=== PATIENT | female | born 1945 | race Caucasian/White ===

== ENCOUNTER 2018-07-11 11:52 | Day surgery (SDC) | payer MEDICARE ==
[2018-07-10 10:33] VITALS: BMI 36.6
--- NOTE | 2018-07-11 14:59 | MRI ---
MRI LUMBAR SPINE NONCONTRAST: HISTORY: Low back pain with radiculopathy. FINDINGS: The conus medullaris has a normal appearance. 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 T12-L1: Mild chronic compression of the L1 superior end plate with approximately 0.3 cm retropulsion . No significant compromise of the central canal. Neural foramina are patent. L1-2: Mild disk bulge. Osteophytosis. Central canal is patent. Mild stenosis of the right neural foramen. L2-3: Minimal disk bulge. Osteophytosis. Central canal is patent. Mild bilateral foraminal stenos es. L3-4: Central canal is patent. Degenerative changes result in moderate right and mild left foramina l stenoses. L4-5: Minimal disk bulge. Thecal sac is patent. Degenerative changes with moderate stenosis of the left neural foramen. L5-S1: Disk space narrowing. Minimal disk bulge with mild posterior central disk protrusion. Theca l sac is patent. Degenerative changes with moderate stenosis of each neural foramen. Images including the retroperitoneum show atrophy of the cortex of each kidney and a left renal cyst. IMPRESSION: Degenerative changes of the lumbar spine including mild to moderate foraminal stenoses as detailed ab ove. No focal disk herniation or nerve root compression. POS: [facility]
== END 2018-07-11 15:00 | disposition home or self-care (01) ==
LOC: SDC/OP 11:52
PROVIDERS: ATTEND Physician Assistant Surgical
DX: M51.16 Intervertebral disc disorders with radiculopathy, lumbar region (principal); M48.062 Spinal stenosis, lumbar region with neurogenic claudication; F40.240 Claustrophobia; I48.91 Unspecified atrial fibrillation; Z79.02 Long term (current) use of antithrombotics/antiplatelets; Z79.4 Long term (current) use of insulin; Z79.899 Other long term (current) drug therapy; Z88.0 Allergy status to penicillin; Z88.8 Allergy status to other drugs, medicaments and biological substances; Z95.5 Presence of coronary angioplasty implant and graft
CPT/HCPCS: 36416; 72148

== ENCOUNTER 2018-08-27 19:23 | Inpatient (IN) | payer MEDICARE ==
[~2018-08-27 19:23] MED LIST: Heparin 1,000 UNITS/ML VIAL ONE
[2018-08-27] MEDS ORDERED: cefTRIAXone\\ROCEPHIN 2 GM VIAL ONE (19:39)
[2018-08-27 20:38] LABS: CKMB 2.5 ng/mL (0-6.6)
[2018-08-27] MEDS ORDERED: Adenosine 6 MG/2 ML VIAL ONE (20:45)
[2018-08-27] MEDS ORDERED: Azithromycin 500 MG in Sodium Chloride 0.9% 250 ML 250 ML IVPB SCH (20:45)
[2018-08-27] MEDS ORDERED: Diltiazem 125 MG/25 ML ONE (21:14)
[2018-08-27] MEDS ORDERED: Diltiazem HCl 125 MG, Admixture Fee 1 EACH in Sodium Chloride 0.9% 100 ML IVPB SCH (21:30)
[2018-08-27] MEDS ORDERED: Acetaminophen 500 MG TAB ONE (21:38)
[2018-08-27] MEDS ORDERED: Acetaminophen 650 MG Suppository PR PRN (21:44)
[2018-08-27] MEDS ORDERED: Heparin 25,000 units/D5W 500 ML IVPB SCH (22:15)
[2018-08-27] MEDS ORDERED: Heparin 10,000 UNITS/ 10 ML VIAL SLOW IVP SCH (22:15)
[2018-08-27 23:22] LABS: Anion Gap 14 mmol/L (10-20); BUN (Urea Nitrogen) 51 mg/dL (9.8-20.1); BUN/Creatinine Ratio 33.12; Calc. Creatinine Clearance 0 mL/min (70-130); Calcium 6.8 mg/dL (7.8-10.44); Carbon Dioxide 16 mmol/L (23-31); Chloride 111 mmol/L (98-107); Estimated GFR-MDRD 33; Glucose 184 mg/dL (83-110); Phosphorus 2.8 mg/dL (2.3-4.7); Potassium 4.4 mmol/L (3.5-5.1); Sodium 137 mmol/L (136-145)
[2018-08-27] MEDS: Sodium Chloride 0.9% 1,000 ML IV SCH ×2 (23:30→23:42)
[2018-08-27 23:46] VITALS: BMI 35.9
[2018-08-27] MEDS ORDERED: guaiFENesin 200 MG TAB PO PRN (23:50)
[2018-08-27] MEDS ORDERED: Sodium Chloride 0.9% 1,000 ML IV SCH (23:59)
[2018-08-28] MEDS: Vancomycin HCl 1.75 GM in Sodium Chloride 0.9% 500 ML IVPB SCH ×2 (00:21→23:41)
[2018-08-28 00:48] LABS: Bilirubin Negative (Negative); Blood, Urine Negative (Negative); Clarity CLOUDY (Clear); Glucose, Urine (Dipstick) Negative (Negative); Leukocyte Trace (Negative); Nitrite Negative (Negative); Protein, Urine (Dipstick) 30 mg/dL (Neg-Trace); Specific Gravity, Urine 1.015 (1.002-1.036); Urobilinogen 0.2 mg/dL (0.2-1.0)
[2018-08-28 00:54] LABS: Legionella Urinary Ag Negative (Negative); Strep pneumo Urine Ag POSITIVE (NEGATIVE)
[2018-08-28] MEDS ORDERED: Guaifenesin DM 100-10/5 ML UDCUP PO PRN (02:07)
[2018-08-28] MEDS ORDERED: Aztreonam 1 GM in Sodium Chloride 0.9% 100 ML IVPB SCH (04:00)
[2018-08-28 06:40] LABS: Mean Corpuscular HGB CONC 32.3 g/dL (32.0-36.0); Mean Corpuscular Hemoglobin 31.8 pg (27.0-31.0); Mean Corpuscular Volume 98.3 fL (78.0-98.0); Mean Platelet Volume 7.8 fL (7.4-10.4); Platelet Count 203 thou/uL (130-400); RBC Distribution Width 11.7 % (11.5-14.5); Red Blood Cell (RBC) Count 3.14 mill/uL (4.20-5.40); White Blood Cell (WBC) Count 16.2 thou/uL (4.8-10.8)
[2018-08-28 06:51] LABS: ALT (SGPT) 17 U/L (8-55); AST (SGOT) 28 U/L (5-34); Albumin 2.1 g/dL (3.4-4.8); Alkaline Phosphatase 56 U/L (40-150); Anion Gap 15 mmol/L (10-20); BUN (Urea Nitrogen) 53 mg/dL (9.8-20.1); Bilirubin, Total 0.9 mg/dL (0.2-1.2); Calc. Creatinine Clearance 46 mL/min (70-130); Calcium 7.1 mg/dL (7.8-10.44); Carbon Dioxide 17 mmol/L (23-31); Chloride 111 mmol/L (98-107); Estimated GFR-MDRD 30; Globulin 2.9 g/dL (2.4-3.5); Glucose 189 mg/dL (83-110); Potassium 4.5 mmol/L (3.5-5.1); Sodium 138 mmol/L (136-145)
[2018-08-28] MEDS: Metoprolol Tartrate 25 MG TAB PO SCH ×2 (08:13→20:12)
[2018-08-28] MEDS: Acetaminophen 325 MG TAB PO PRN ×3 (08:30→20:47)
--- NOTE | 2018-08-28 08:53 | HP ---
CHIEF COMPLAINT: Cough. HISTORY OF PRESENT ILLNESS: This is a 73-year-old female with past medical history of coronary artery disease status post stents, history of diabetes mellitus type 2, hernia, hyperlipidemia, and hypertension, who is presenting with productive cough. Per patient, she has been having some cough, which started since Saturday prior to the day of admission and the patient states that the cough has worsened and that prompted her to go to [facility]. At the [facility] , the patient was found to have pneumonia and sepsis. Therefore, the patient was transferred to our hospital to be further evaluated. At this point, upon further evaluation and examination, the patient was found to have atrial fibrillation with RVR, so the patient was started on Cardizem drip en route to the hospital. The patient was also given Levaquin for pneumonia and subjective fevers. At this point, the patient stated that she is having productive cough, she is very dry, and she was having some chills and subjective fevers. The patient denies any sick contacts and the patient has not traveled recently. The patient stated that she lives at home with her . Of note, the patient was recently seen in the hospital for gastrointestinal bleed. The patient stated that she was having bloody bowel movements a couple of months ago and she was on Xarelto and Plavix during that time, and the patient's Xarelto was held at the time. At this point, the patient stated that she has not had any bloody bowel movement and also stool occult that was done in the [facility] has been negative. REVIEW OF SYSTEMS: Positive for shortness of breath, productive cough, fever, chills, otherwise as documented in the HPI. All other systems were reviewed and are negative. PAST MEDICAL HISTORY: Significant for coronary artery disease, status post stents x1, diabetes mellitus type 2, hiatal hernia, hyperlipidemia, and hypertension. FAMILY HISTORY: Reviewed and noncontributory to this visit. SURGICAL HISTORY: Eyelid left bilateral cataract surgery, hysterectomy, stents x2, and colorectal ablation. PSYCHIATRIC HISTORY: No previous psych history. SOCIAL HISTORY: The patient denies alcohol use. Denies any illicit drug use. Denies any smoking history. ALLERGIES: THE PATIENT IS ALLERGIC TO LISINOPRIL AND PENICILLIN. CURRENT MEDICATIONS: The patient is on; 1. Biotin. 2. Black cohosh root. 3. Clopidogrel 75 mg. 4. Vitamin B12 of 1000. 5. Losartan 25 mg. 6. Metoprolol 25 mg. 7. Pantoprazole 40 mg. 8. Senna. 9. Atorvastatin 20 mg. 10. Vitamin D3 5000 units daily. 11. Detemir. PHYSICAL EXAMINATION: VITAL SIGNS: The patient's initial vitals; blood pressure was 153/90, pulse of 145, respiratory rate of 28, temperature of 100.4, O2 saturation of 95. GENERAL: The patient is lying in bed, coughing. The patient appears to be in mild distress, able to speak in full sentences. However, alert and oriented x3. HEENT: Normocephalic and atraumatic. Pupils are equally round and reactive to light. Extraocular movements are intact. No scleral icterus. No conjunctival pallor. NECK: No JVD. Trachea is midline. No cervical adenopathies. No tenderness. No meningeal signs. Mucous membranes are very dry. LUNGS: The patient has bilateral crackles at the lower lobes bilaterally and at the left anterior lobe. CARDIAC: The patient has tachycardia. ABDOMEN: Soft, nontender, and nondistended. Obese. No pulsatile masses. No peritoneal signs. No rigidity. No guarding. EXTREMITIES: The patient has 5/5 upper extremity strength and 5/5 lower extremity strength. No edema noted at the upper and lower extremities. NEUROLOGIC: Cranial nerves 2 through 12 grossly intact. No neurologic deficits noted. SKIN: Warm, dry, and intact. PSYCH: Normal affect. Alert and oriented x3. DIAGNOSTIC DATA: EKG that was done shows questionable sinus tachycardia/ possible SVT with a rate of 144. LABORATORY DATA: WBC 16.2, hemoglobin of 10, hematocrit of 30.9, and platelet count is 203. Sodium is 138, potassium of 4.4, chloride of 111, carbon dioxide of 16, anion gap of 14, BUN is 51, creatinine is 1.54, GFR of 33, and glucose of 184. Lactic acid is 2.0 and 1.6, phosphorus is 2.8. Troponin is 0.048. Urinalysis; trace leuk esterase. Serology shows positive strep pneumoniae. Chest x-ray shows left-sided consolidation. ASSESSMENT AND PLAN: This is a 73-year-old female, being admitted for: 1. Community-acquired pneumonia. At this point, she appears to have possibl supraventricular tachycardia running at 150s to 160s. We will start the patient on antibiotics. We will start the patient on fluids. We will continue the patient on current management. We will try and slow the patient's heart rate down by using Valsalva technique and if the patient's heart rate does not slow down, we will give the patient adenosine to see underlying rhythm. If the patient's heart rate does not slow down and the patient appears to be in atrial fibrillation, then we will start the patient back on Cardizem to control the patient's rate and the patient is going to be admitted to the [facility]. We will give p.r.n. acetaminophen for pain and fever. We will monitor the patient very closely. We will send out cultures and we will follow up on cultures and tailor antibiotics based on culture results. 2. Tachycardia likely supraventricular tachycardia/underlying atrial fibrillation with rapid ventricular response. At this point, the patient has been given adenosine. The patient appears to be in atrial fibrillation with rapid ventricular response. We have started the patient on Cardizem drip. We are going to admit the patient to the [facility]. We will continue to monitor the patient closely. We will continue IV fluid. 3. History of atrial fibrillation. The patient is not on any anticoagulation at this time. We will start the patient on heparin drip and we have consulted Cardiology. We will follow up with Cardiology's recommendations. We will hold Plavix. 4. Hypertension. At this point, the patient is normotensive. We will monitor the patient's blood pressure closely. The patient is currently in supraventricular tachycardia/atrial fibrillation with rapid ventricular response. The patient is going in and out. At this point, we will monitor the patient's blood pressure closely since the patient can become hypotensive at any time granted that the patient is also on Cardizem drip. 5. Coronary artery disease, status post stents. At this point, we will continue the patient on her current medications. We will hold Plavix. 6. Urinary tract infection. At this point, we will continue the patient on antibiotics and we will continue to monitor the patient. 7. History of gastrointestinal bleed. At this point, the patient does not have any bleed and the patient's occult blood has been negative. We will start the patient on heparin and we will monitor the patient closely. 8.. Diabetes mellitus type 2. We will continue the patient on insulin sliding scale and we will monitor the patient's blood glucose. Critical care time > 70 mins Job ID: [id number] MTDD
[2018-08-28] MEDS ORDERED: Famotidine 20 MG TAB PO SCH (09:00)
[2018-08-28] MEDS: Famotidine/PF 20 mg/2ml Vial SLOW IVP SCH ×2 (09:00→20:21)
[2018-08-28 09:36] LABS: Band 16 % (5-11); Burr Cells SLIGHT = 2-5 cells (100X) (0-1/hpf); Lymphocytes 4 % (21-51); MDiff Complete? YES; Monocytes 5 % (0-10); Neutrophil 75 % (42-75); PLT Morphology Comment Appears Adequate; Polychromasia SLIGHT = 2-3 cells (100X) (0-2/hpf)
--- NOTE | 2018-08-28 10:08 | PDOC.PN ---
- Subjective Encounter Start Date: 08/28/18 (f/u pneumonia) Encounter Start Time: 10:05 Subjective: Pt c/o feeling tired and coughing. Reports bruising on abd wall has been -: present since she is coughing. is having diarrhea - Objective Resuscitation Status - Order Detail: 08/27/18 21:44 Resuscitation Status Routine Resuscitation Status: FULL: Full Resuscitation Vital Signs & Weight: Vital Signs (12 hours) Temp Pulse Resp BP Pulse Ox 08/28/18 07:21 143 H 22 H 118/73 100 08/28/18 04:00 97.9 F 117 H 19 128/47 L 100 08/27/18 23:45 98.3 F 134 H 15 104/54 L 100 08/27/18 23:35 100 Weight Weight 216 lb 0.848 oz I&O: 08/27/18 08/28/18 08/29/18 06:59 06:59 06:59 Intake Total 2450 Output Total 200 100 Balance 2250 -100 Result Diagrams: 08/28/18 06:12 08/28/18 06:12 EKG Reviewed by me: Yes (tele - a fib 110-130s) Phys Exam - Physical Examination Constitutional: NAD Respiratory: no wheezing few scattered rhonchi, decreased breath sounds at right base Cardiovascular: no significant murmur, irregular Gastrointestinal: soft, positive bowel sounds ttp along the area of ecchymosis of abd wall, abd soft No pitting edema Neurological: non-focal, moves all 4 limbs Deviation from normal: blunted affect, appears tired Deviation from normal: large areas of ecchymosis on each arm and abd wall. Dx/Plan (1) Atrial fibrillation with RVR Code(s): I48.91 - UNSPECIFIED ATRIAL FIBRILLATION Status: Chronic (2) Streptococcal pneumonia Code(s): J15.4 - PNEUMONIA DUE TO OTHER STREPTOCOCCI Status: Acute (3) Diabetes mellitus Code(s): E11.9 - TYPE 2 DIABETES MELLITUS WITHOUT COMPLICATIONS Status: Chronic Qualifiers: Diabetes mellitus type: type 2 Diabetes mellitus penitentiary insulin use: with rat exterminator use (4) CAD (coronary artery disease) Code(s): I25.10 - ATHSCL HEART DISEASE OF [place] CORONARY ARTERY W/O ANG PCTRS Status: Chronic Qualifiers: Coronary Disease-Associated Artery/Lesion type: [place] artery [place] vs. transplanted heart: [place] heart (5) HTN (hypertension) Code(s): I10 - ESSENTIAL (PRIMARY) HYPERTENSION Status: Chronic Qualifiers: Hypertension type: essential hypertension Qualified Code(s): I10 - Essential (primary) hypertension (6) Obesity Code(s): E66.9 - OBESITY, UNSPECIFIED Status: Chronic Qualifiers: Obesity type: unspecified obesity type - Plan * 2 main issues are: * Pneumonia - by [facility] report in left mid-lung with positive urine strep pneumonia. Pt is on aztreonam and Vancomycin - will hold on changing these pending Pulm consult * A Fib with RVR - increased diltiazem to 10 mg/hr for better rate control. Cards consult. Pt is on heparin gtt for now * DM - continue long acting insulin as ordered - adjust per intake, add mild scale for mealtime * Diarrhea - check stool studies * CKD stage 3 - consult to Dr. Valerio and renal imaging ordered * PT and OT consults as pt at high risk of deconditioning further while here. * * dvt prophy - full dose heparin * gi prophy - taking PO * code status full * * reviewed current diagnosis and treatment with patient, no questions or further needs at end of eval * pt remains at high risk in current condition.
[2018-08-28] MEDS ORDERED: HumaLOG 300 UNITS/3 ML VIAL SC PRN (10:14)
[2018-08-28] MEDS ORDERED: Dextrose 5% in Water 1,000 ML IV PRN (10:14)
[2018-08-28] MEDS ORDERED: Dextrose 50% Abboject 50 ML SYRINGE SLOW IVP PRN (10:14)
--- NOTE | 2018-08-28 11:33 | CON ---
DATE OF CONSULTATION: HISTORY OF PRESENT ILLNESS: Jeanette Chamorro is a 73-year-old obese female from [place], [place], who sees Dr. Shepherd, who presented to the ER yesterday with symptoms of cough, congestion since yesterday. . She has never smoked. No prior history of TB, pneumonia, or bronchial asthma. She has known history of atrial fibrillation, status post ablation and apparently started on Cardizem and Levaquin. Most of the day she is relatively active without getting markedly short of breath. PAST MEDICAL HISTORY: Coronary artery disease, status post stent; history of diabetes; reflux. PREVIOUS SURGERIES: Included cataract surgery, hysterectomy, cardiac stents, some kind of colorectal ablation. HOME MEDICATIONS: Includes; 1. Plavix 37.5. 2. Lopressor one tablet twice a day. 3. Protonix 40. 4. Losartan . ALLERGIES: LISINOPRIL AND PENICILLIN. REVIEW OF SYSTEMS: Otherwise, 10-point negative. PHYSICAL EXAMINATION: VITAL SIGNS: blood pressure is 118/73, temperature 97, respiratory saturations 100%. CHEST: Bilateral rhonchi and wheezing. CARDIAC: Normal S1 and S2. No gallops. ABDOMEN: No masses. LABORATORY DATA: White count 16,000, H and H 10 and 30, platelet count 203. Creatinine is 1.67, BUN is 53. Otherwise, lytes are normal. Influenza is negative. Apparently, chest x-ray from [place] was normal. We unable to access the information. IMPRESSION: 1. Bronchitis. 2. Atrial fibrillation. 3. Diabetes. 4. Hypertension. 5. Coronary artery disease. Medicine being adjusted. I am going to get a baseline chest x-ray. Nebs and anti-inflammatory medication have been initiated. We will follow. Consultation note, 70 minutes, of which 50% in direct patient care. Job ID: [id number]
--- NOTE | 2018-08-28 12:11 | ULT ---
STANDARD BILATERAL RENAL ULTRASOUND: HISTORY: Acute kidney injury. COMPARISON: Ultrasound from 10/01/2015. FINDINGS: The right kidney measures 10 x 5.2 x 5.3 cm and the left kidney measures 10.3 x 5.9 x 5.4 cm. Pre-vo id urinary bladder volume is 60 mL. No renal mass, hydronephrosis, or abnormal calcifications. IMPRESSION: No evidence of obstructive uropathy. POS: [facility]
--- NOTE | 2018-08-28 12:11 | RAD ---
CHEST 1 VIEW: Date: 08/28/18 HISTORY: Cough. COMPARISON: Radiograph dated 07/18/16. FINDINGS: There is a left upper lobe consolidation/mass. There is also right basilar consolidation/mass. The fi ndings are slightly improved compared to the 08/27/18 exam. IMPRESSION: Left upper lobe and right lower lobe air space opacities versus mass. Continued follow-up recommended . POS: [facility]
--- NOTE | 2018-08-28 13:20 | CON ---
DATE OF CONSULTATION: NEPHROLOGY CONSULT REASON FOR CONSULTATION: Elevated creatinine. HISTORY OF PRESENT ILLNESS: This is a very pleasant 73-year-old female, who was taking NSAID, presented to the hospital with cough, was noted to have a creatinine of 1.5 to 1.6 today, prior baseline was around 1.4 to 1.0 two years ago. She had few episodes of acute kidney injury. The patient denies any chest pain, but was found to have atrial fibrillation with rapid ventricular response. PAST MEDICAL HISTORY: Significant for coronary artery disease, stents, diabetes mellitus, hiatal hernia, and hypertension. FAMILY HISTORY: Negative for ESRD. PAST SURGICAL HISTORY: Significant for cataract, hysterectomy, stents, and colorectal ablation. SOCIAL HISTORY: No tobacco, alcohol, or drug use. MEDICATIONS: Home medication list reviewed. ALLERGIES: REVIEWED. PHYSICAL EXAMINATION: CONSTITUTIONAL: The patient is awake, alert. VITAL SIGNS: Afebrile, pulse 100, breathing 16, and blood pressure 153/90. GENERAL APPEARANCE AND MENTAL STATUS: Fair. HEAD/NECK: Normocephalic. Atraumatic. EYES: EOMI. No deformity. EARS: Clear. No ulcers. NOSE: Intact. No lesions. MOUTH: Clear. No discharge. THROAT: Clear. No exudate. LUNGS: Clear. No crackles. CARDIAC: S1, S2. No rub. ABDOMEN: Benign. Bowel sounds positive. GENITALIA/RECTUM: Iniguez absent. BACK/EXTREMITIES: Edema 0+. NEUROLOGICAL: Alert and motor intact. SKIN: LYMPHATICS: LABORATORY DATA: Labs show creatinine 1.6. Urine shows protein present. Hemoglobin is 10. IMPRESSION AND PLAN: 1. Acute kidney injury with chronic kidney disease due to cardiorenal syndrome and NSAID use, avoid that. Order imaging. 2. Hypertension, stable. 3. Anemia, stable. 4. Medications based on GFR, appropriate. No indication for dialysis. Job ID: [id number]
--- NOTE | 2018-08-28 14:32 | CON ---
DATE OF CONSULTATION: 08/28/2018 REASON FOR CONSULTATION: Atrial fibrillation with RVR. HISTORY OF PRESENT ILLNESS: Ms. Chamorro is a very pleasant 73-year-old white female, very well known to myself, who comes to the hospital for symptoms consistent with bronchitis or pneumonia. She was admitted and placed on antibiotics. She eventually developed atrial fibrillation with RVR. Heart rate in the 140s. She was started on diltiazem drip and heart rate is now rate controlled. She is feeling better from tachycardia standpoint, but is still struggling with a lot of cough to the point where she is chronically on Plavix for CAD and she ruptured spontaneously subcutaneous vessel on her belly and has a large area of ecchymosis from all the coughing. She denies any chest pain, tightness, pressure other than coughing and congestion. PAST MEDICAL HISTORY: 1. Atrial fibrillation. 2. Atrial flutter. 3. Coronary artery disease. 4. Type 2 diabetes. 5. Hiatal hernia. 6. Hyperlipidemia. 7. Hypertension. 8. History of upper GI bleed from erosive esophagitis and peptic ulcer disease. PAST SURGICAL HISTORY: 1. Bilateral eyelid surgery. 2. Cataract surgery. 3. Hysterectomy. 4. Heart catheterization with stents in the LAD in 2016. 5. Ablation of both atrial fibrillation and atrial flutter in 2016. 6. EGD, colonoscopy. OUTPATIENT MEDICATIONS: Include; 1. Biotin. 2. Black cohosh. 3. Plavix 75 mg. 4. Vitamin B12. 5. Losartan 25 mg. 6. Metoprolol 25 mg b.i.d. 7. Pantoprazole 40 mg. 8. Senna. 9. Atorvastatin 20 mg. 10. Vitamin D3. 11. Detemir. ALLERGIES: LISINOPRIL AND PENICILLIN. SOCIAL HISTORY: No alcohol, tobacco, or drug use. FAMILY HISTORY: Noncontributory. REVIEW OF SYSTEMS: 12-point review of systems was done and was found to be negative unless stated in the history of present illness. PHYSICAL EXAMINATION: VITAL SIGNS: Temperature 97.9, pulse anywhere from 140s down to the 80s now, blood pressure 100/76, saturating 99% on 2 L. GENERAL: Awake, alert, oriented x3. No distress. HEENT: Normocephalic. LUNGS: Mild coarseness bilaterally. CARDIOVASCULAR: S1, S2. No S3, S4. No murmurs. ABDOMEN: Soft. Positive bowel sounds. EXTREMITIES: Trace edema. SKIN: Warm and dry. LABORATORY WORK: Reviewed. CBC with white count of 16, hemoglobin of 10, hematocrit 30, platelet count 203. Chemistries reviewed. Creatinine went from 1.5 to 1.6, normal sodium and potassium, glucose in the 180s, calcium at 7.1. Troponin 0.048, only one has been drawn. Albumin of 2.1. UA was reviewed. Strep pneumoniae antigen is positive. Legionella antigen in the urine is negative. Flu is negative for both A and B. Telemetry was reviewed, atrial fibrillation, RVR, now rate controlled. ASSESSMENT: 1. Acute bronchitis/pneumonia. 2. Atrial fibrillation, rapid ventricular rate. 3. Coronary artery disease, stable. PLAN: 1. Continue rate control with diltiazem at current dose. She will need full anticoagulation with subcu Lovenox for now for stroke prophylaxis and she did have a history of upper GI bleed from ulcerative disease and erosive esophagitis. Will have to be on a b.i.d. PPI and she may be a candidate for Lariat or Watchman device in the future. 2. We will call Electrophysiology as well as she has failed her atrial fibrillation ablation which was two years ago, she may need repeat ablation with Watchman device placement. 3. Antibiotics per primary team. 4. We will follow. Job ID: [id number]
[2018-08-28] MEDS: Diltiazem 125 MG in Sodium Chloride 0.9% 100 ML IVPB SCH (15:00)
--- NOTE | 2018-08-28 16:54 | ULT ---
LIMITED ABDOMINAL ULTRASOUND: 08/28/18 CLINICAL HISTORY: Evaluation of rectus sheath hematoma. Internal bleeding. Pain. FINDINGS: Localized sonographic imaging of the area of interest within the abdomen performed which does include the four abdominal quadrants. There is no free abdominal fluid seen. Within the imaged body wall the re is no obvious focal fluid collection. IMPRESSION: No localizable focal fluid collection is seen. If there is persistent concern for rectus sheath hemat verito, consider CT exam to further evaluate. POS: [facility]
[2018-08-28] MEDS: Mometasone/Formoterol 120 PUFF INHALER INH SCH (18:28)
[2018-08-28] MEDS: Atorvastatin Calcium 20 MG TAB PO SCH (20:15)
[2018-08-28] MEDS: Doxycycline 100 MG CAP PO SCH (20:19)
[2018-08-28] MEDS: Enoxaparin Sodium 100 MG/ML SYRINGE SC SCH (20:20)
[2018-08-28] MEDS: Cefepime 1 GM in Sodium Chloride 0.9% 100 ML IVPB SCH (20:20)
[2018-08-28] MEDS ORDERED: Insulin Glargine 20 UNITS in Pre-Filled Syringe 1 EACH SC SCH (21:00)
[2018-08-28] MEDS ORDERED: Non-Formulary Item 1 EACH (Insulin Detemir 100 Units/Ml [Levemir] 20 UNITS) SC SCH (21:00)
--- NOTE | 2018-08-28 21:09 | CON ---
DATE OF CONSULTATION: 08/28/2018 REFERRING PHYSICIAN: Kody Ivey MD. REASON FOR CONSULTATION: Bleeding with anticoagulation, atrial fibrillation, atrial flutter, and RVR. HISTORY OF PRESENT ILLNESS: Ms. Chamorro is a 73-year-old woman, known to our practice for history of typical atrial flutter as well as atrial fibrillation. She underwent CTI ablation with Dr. Sahni in February of 2016 and shortly thereafter was found to be in atrial fibrillation. She was on Multaq for suppression, but unfortunately her atrial arrhythmias persisted and she underwent PVAI with Dr. Thrasher in May of 2016. Two months later, she had coffee-ground emesis and was found to have multiple ulcers on EGD, though none were actively bleeding. She was on Plavix and Xarelto at that time. She had an CO and stenting of the LAD in February of 2016 as well. Her Xarelto was discontinued. The patient was last seen in our office for followup in June of 2016. She has not returned for appointment since that time. Ms. Chamorro was having coughing at home that had started Saturday prior to admission, which had worsened and become severe enough that prompted her to go to the [facility] in [place]. She was found there to be septic with pneumonia and was transferred to [facility] in [place] for further evaluation. At that time, she was found to be in atrial fibrillation with RVR, and she was started on a Cardizem drip. There was consideration that her tachycardia was an SVT and she was given 6 mg of adenosine which confirmed underlying atrial fibrillation and not SVT. She has also been started on antibiotics for her community-acquired pneumonia. She also endorses that on Saturday she began to have bloody bowel movements as well as coffee-ground emesis once again even without any anticoagulation on board. Since being in the hospital, she is currently on diltiazem 10 mg/hour for rate control, which is keeping her atrial fibrillation between 70 and 80 beats per minute. She was started on Lovenox 100 mg subcutaneous b.i.d. for anticoagulation, but is also currently being evaluated for an acute kidney injury with an elevated creatinine of 1.67. REVIEW OF SYSTEMS: Positive for shortness of breath, cough, fever, chills, abdominal pain, extensive bruising, swelling of the extremities. Otherwise, a 12-point review of systems was conducted and is unremarkable and as per HPI. PAST MEDICAL HISTORY: 1. Atrial fibrillation, status post PVAI in April of 2016, previously refractory to Multaq. 2. CTI dependent atrial flutter, status post CTI ablation in February of 2016. 3. Non ST-elevation CO, requiring stenting of the LAD in February of 2016. 4. Diabetes. 5. Hypertension. 6. Rheumatic pericarditis in 1969. 7. Gastroesophageal reflux disease. 8. Obesity. 9. Hiatal hernia. 10. Hyperlipidemia. 11. CHADS-VASc score of 5 (advancing age, female gender, diabetes, hypertension, vascular disease). 12. History of esophageal bleeding. FAMILY HISTORY: Noncontributory. SOCIAL HISTORY: Lives at home with her . Denies alcohol, tobacco, or illicit drug use. ALLERGIES: LISINOPRIL AND PENICILLIN. HOME MEDICATIONS: Include: 1. Plavix 37.5 mg p.o. b.i.d. 2. Lopressor, dose unknown, one tab p.o. daily. 3. Senna one tab p.o. q.h.s. 4. Protonix 40 mg daily. 5. Losartan potassium half a tab p.o. daily. 6. Levemir 20 to 25 units subcu q.h.s. 7. B12 1000 mcg p.o. daily. 8. Vitamin D3 2000 units p.o. daily. 9. Black cohosh root supplement 20 mg p.o. daily. 10. Biotin 5000 mcg p.o. daily. 11. Atorvastatin 10 mg p.o. q.h.s. PHYSICAL EXAMINATION: VITAL SIGNS: Most recent vital signs; pulse 74, respirations 22, oxygen is 94% on room air, blood pressure 108/82. GENERAL: The patient is resting in bed, lying semi recumbent, in mild distress, mostly with coughing episodes. She is able to speak in full sentences without dyspnea and less coughing. Alert and oriented to person, place, and situation. HEENT: Normocephalic and atraumatic. Pupils are equal, round, and reactive to accommodation and light. Oral mucosa is moist and pink with adequate dentition. NECK: Neck is supple without jugular venous distention. Thyroid is nonpalpable. PULMONARY: Bilateral crackles in the lower lobes. Positive cough with deep breathing. CARDIAC: Heart rate is irregularly irregular. PMI is nondisplaced. No significant murmur, rub, or gallop is appreciated. Heart rate is controlled. ABDOMEN: Obese, soft. No palpable masses. Tender in midline to touch with extensive bruising. EXTREMITIES: Warm and dry to touch with extensive scattered bruising of various ages without clubbing, cyanosis, or edema today. NEUROLOGIC: Grossly intact and nonfocal. IMAGING: EKG and telemetry were personally reviewed and reflect atypical atrial flutter occasionally with RVR. Now rate controlled. No SVT. LABORATORY DATA: Chemistry; potassium 4.5, BUN 53, creatinine 1.67. Hemoglobin 10, hematocrit 30, platelet count 203. Microbiology, positive for pneumococcal pneumonia. IMPRESSION: 1. Recurrent atrial arrhythmias, status post CTI ablation in February of 2016 and PVAI in May of 2016, now with recurrent atypical flutter, persisting in the setting of community-acquired pneumonia, currently rate controlled on diltiazem drip. 2. Anemia with a history of esophageal bleed and nonbleeding ulcers. 3. History of coronary artery disease with prior myocardial infarction and stenting of the LAD in 2016. 4. History of fluctuating LVEF 40% by HUMA in 2016, questionable etiology of her cardiomyopathy. 5. Abdominal pain and extensive bruising. 6. CHADS-VASc score of 5 (advancing age, female gender, hypertension, vascular disease, and diabetes). Currently on Lovenox 100 mg subcu b.i.d. 7. Acute kidney injury. RECOMMENDATIONS: Agree with current medical treatment plan to rate control her atrial fibrillation until her pulmonary status stabilizes. Once she is more medically stable, could consider a HUMA cardioversion, and if possible, then resume oral anticoagulation. Long-term she would likely benefit from a Watchman for left atrial appendage closure, but even this requires tolerating oral anticoagulation for a short duration. Following her HUMA cardioversion, we will likely resume Multaq for arrhythmia suppression. I have some concern with her high dose of Lovenox and her kidney function and we will confer with pharmacy on appropriate dosing for stroke prophylaxis and Lovenox with her creatinine being elevated. She has extensive bruising across her abdomen and tenderness to palpation and with coughing and there is some concern for rectus muscle hematoma. Order an abdominal ultrasound to rule out any hidden hematomas or internal bleeding. Thank you for allowing us to participate in the care of this patient. We will continue to follow her. Job ID: [id number]
[2018-08-29] MEDS: Acetaminophen 325 MG TAB PO PRN ×2 (01:39→20:56)
[2018-08-29] MEDS: Diltiazem 125 MG in Sodium Chloride 0.9% 100 ML IVPB SCH (03:42)
[2018-08-29] MEDS ORDERED: Haloperidol Lactate 5 MG/ML VIAL IM SCH (03:45)
[2018-08-29 05:47] LABS: Band 3 % (5-11); Hemoglobin 9.6 g/dL (12.0-16.0); Hypochromia SLIGHT = 6-15 cells (100X) (0-5/hpf); Lymphocytes 1 % (21-51); MDiff Complete? YES; Mean Corpuscular HGB CONC 32.8 g/dL (32.0-36.0); Mean Corpuscular Hemoglobin 32.4 pg (27.0-31.0); Mean Corpuscular Volume 98.7 fL (78.0-98.0); Mean Platelet Volume 8.1 fL (7.4-10.4); Monocytes 2 % (0-10); Neutrophil 94 % (42-75); PLT Morphology Comment Appears Adequate; Platelet Count 199 thou/uL (130-400); RBC Distribution Width 11.8 % (11.5-14.5); Red Blood Cell (RBC) Count 2.98 mill/uL (4.20-5.40); White Blood Cell (WBC) Count 6.6 thou/uL (4.8-10.8)
[2018-08-29 05:50] LABS: Anion Gap 14 mmol/L (10-20); BUN (Urea Nitrogen) 67 mg/dL (9.8-20.1); Calc. Creatinine Clearance 42 mL/min (70-130); Calcium 7.1 mg/dL (7.8-10.44); Carbon Dioxide 15 mmol/L (23-31); Chloride 109 mmol/L (98-107); Estimated GFR-MDRD 27; Glucose 227 mg/dL (83-110); Potassium 4.2 mmol/L (3.5-5.1); Sodium 134 mmol/L (136-145)
[2018-08-29] MEDS: Mometasone/Formoterol 120 PUFF INHALER INH SCH ×2 (08:31→22:06)
[2018-08-29] MEDS: Cefepime 1 GM in Sodium Chloride 0.9% 100 ML IVPB SCH ×2 (09:10→21:01)
[2018-08-29] MEDS: Enoxaparin Sodium 100 MG/ML SYRINGE SC SCH (09:10)
[2018-08-29] MEDS: Metoprolol Tartrate 25 MG TAB PO SCH ×2 (09:13→20:55)
[2018-08-29] MEDS: Famotidine/PF 20 mg/2ml Vial SLOW IVP SCH ×2 (09:14→20:58)
[2018-08-29] MEDS: Doxycycline 100 MG CAP PO SCH ×2 (09:14→20:57)
--- NOTE | 2018-08-29 09:41 | PRG ---
DATE OF SERVICE: 08/29/2018 SUBJECTIVE: This morning, she is better, less cough, less shortness of breath. No fever or chills. OBJECTIVE: VITAL SIGNS: Sats are 98% room air, respirations are 18, pulse 103, temperature 97, blood pressure 107/60. CHEST: No wheezing. CARDIAC: Normal S1, S2. No gallops. ABDOMEN: No masses. LABORATORY DATA: H and H are 9 and 29. White count is normal with a slight left shift and 94 segs, 3 bands. Creatinine 1.83. IMPRESSION: 1. Bronchitis. 2. Renal failure. 3. Atrial fibrillation. 4. Continue steroids antibiotics. 5. We will follow. Job ID: [id number]
--- NOTE | 2018-08-29 11:08 | PDOC.PN ---
- Subjective Encounter Start Date: 08/29/18 (f/u DM) Encounter Start Time: 11:06 Subjective: Pt tearful stating she feel bad, hurts all over and yesterday -: she had a 'meltdown'. Asking about when the pain is going to -: end - multiple attempts at IV unsuccessful - Objective Resuscitation Status - Order Detail: 08/27/18 21:44 Resuscitation Status Routine Resuscitation Status: FULL: Full Resuscitation Vital Signs & Weight: Vital Signs (12 hours) Temp Pulse Resp BP Pulse Ox 08/29/18 07:32 98 08/29/18 07:31 97.8 F 104 H 107/63 94 L 08/29/18 04:20 107 H 18 111/87 100 08/29/18 00:39 97.7 F 82 17 100/62 98 Weight Weight 216 lb 0.848 oz I&O: 08/28/18 08/29/18 08/30/18 06:59 06:59 06:59 Intake Total 2450 3495 Output Total 200 900 Balance 2250 2595 Result Diagrams: 08/29/18 05:02 08/29/18 05:02 Additional Labs: Accuchecks 08/29/18 08/28/18 08/28/18 06:32 20:30 11:34 POC Glucose 246 H 277 H 200 H EKG Reviewed by me: Yes (a fib 90-120's) Phys Exam - Physical Examination Constitutional: NAD Respiratory: no rales, no rhonchi some expiratory wheezing Cardiovascular: no significant murmur, irregular Gastrointestinal: soft, non-tender, no distention, positive bowel sounds Musculoskeletal: no edema no pitting edema in legs Neurological: non-focal, moves all 4 limbs Deviation from normal: large ecchymosis along abd wall - unchanged, large areas of -: ecchymosis on each arm - unchanged Dx/Plan (1) Severe sepsis Code(s): A41.9 - SEPSIS, UNSPECIFIED ORGANISM; R65.20 - SEVERE SEPSIS WITHOUT SEPTIC SHOCK Status: Acute (2) Atrial fibrillation with RVR Code(s): I48.91 - UNSPECIFIED ATRIAL FIBRILLATION Status: Chronic (3) Streptococcal pneumonia Code(s): J15.4 - PNEUMONIA DUE TO OTHER STREPTOCOCCI Status: Acute (4) Diabetes mellitus Code(s): E11.9 - TYPE 2 DIABETES MELLITUS WITHOUT COMPLICATIONS Status: Chronic Qualifiers: Diabetes mellitus type: type 2 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 transplanted heart: [place] heart (6) HTN (hypertension) Code(s): I10 - ESSENTIAL (PRIMARY) HYPERTENSION Status: Chronic Qualifiers: Hypertension type: essential hypertension Qualified Code(s): I10 - Essential (primary) hypertension (7) Obesity Code(s): E66.9 - OBESITY, UNSPECIFIED Status: Chronic Qualifiers: Obesity type: unspecified obesity type (8) Anemia Code(s): D64.9 - ANEMIA, UNSPECIFIED Status: Chronic Qualifiers: Anemia type: unspecified type Qualified Code(s): D64.9 - Anemia, unspecified (9) CKD (chronic kidney disease) Code(s): N18.9 - CHRONIC KIDNEY DISEASE, UNSPECIFIED Status: Chronic Qualifiers: Chronic kidney disease stage: stage 3 (moderate) Qualified Code(s): N18.3 - Chronic kidney disease, stage 3 (moderate) - Plan * * 2 main issues are: * Sepsis secondary to Pneumonia -appreciate Pulm eval - abx now Cefepime, doxy and Vanc. Pt also on steroids and nebs * A Fib with RVR - appreciate Cards eval on cardizem gtt - on hold due to no IV. also on metoprolol and heparin changed to lovenox. I discussed with Pharmacist and pt on border of stage 3/4 CKD - lower the lovenox to once daily * DM - on steroids and not controlled - increase lantus to 25 units at night and chagne to moderate sliding scale dose * Diarrhea - neg stool studies * CKD stage 3 - Dr. Valerio monitoring - renal function about the same today * PT and OT consults as pt at high risk of deconditioning further while here. * * dvt prophy - full dose lovenox * gi prophy - BID famotidine * code status full * * reviewed current diagnosis and treatment with patient, no questions or further needs at end of eval * pt remains at high risk in current condition..
--- NOTE | 2018-08-29 12:08 | PDOC.CTH ---
Cardiology Progress Note - Subjective EP PROGRESS NOTE:08/29/18 [address] in bed. Seen as follow up for atrial fibrillation. Feels poorly with high levels of pain. Very discouraged. Emotional upset with multiple IV attempts. + cough, pain with coughing, short of breath, swelling in legs (improving) -heart racing, palpitations, dizziness, fevers - Objective Vital Signs Temp Pulse Resp BP Pulse Ox 08/29/18 11:28 98.7 F 108 H 20 110/63 98 08/29/18 07:32 98 08/29/18 07:31 97.8 F 104 H 107/63 94 L 08/29/18 04:20 107 H 18 111/87 100 08/29/18 00:39 97.7 F 82 17 100/62 98 Weight 216 lb 0.848 oz 08/28/18 08/29/18 08/30/18 06:59 06:59 06:59 Intake Total 2450 3495 Output Total 200 900 Balance 2250 2595 - Physical Examination General/Neuro: alert & oriented x3, NAD Neck: carotid US brisk, no JVD present Lungs: unlabored respirations Heart: other: (irreg irreg) Abdomen: soft, other: (bruised extensively. tender to touch) - Telemetry Telemetry Rhythm: AF VR 100-115 - Labs Result Diagrams: 08/29/18 05:02 08/29/18 05:02 Troponin/CKMB CK-MB (CK-2) 2.5 ng/mL (0-6.6) 08/27/18 19:40 Troponin I 0.048 ng/mL (< 0.028) H 08/27/18 19:40 - Assessment/Plan 1. Atrial fibrillation -remains in AF today -RVR controlled. on diltiazem gtt at 10mg/hr. Will change to PO. On Metoprolol tartrate 12.5 PO BID 2. Anemia -h/o esophageal bleed -reports recent coffee ground emesis (last saturday) 3. Community acquired pneumonia -anbx, steroid, and nebs -per pulm. 4. CHADS2-VASC: 5 -continue lovenox 100mg SQ QD 5. Abd pain -extensive bruising -pain with coughing -Abd US negative for rectal sheath hematoma 6. 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 Continue lovenox for CVA prophylaxis. rate control for now. Once medically more stable can plan for HUMA/CV then start Multaq 400mg PO BID and start OAC if no further bleeding issues are seen. Further investigation into coffee ground emesis may be reasonable to help clear her for anticoagulation.She has had this in the past but was on Xarelto and plavix at that time. She remains on plavix 37.5 PO BID. 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
--- NOTE | 2018-08-29 13:44 | PDOC.CTH ---
Cardiology Progress Note - Subjective She had what she calls a "breakdown" yesterday. She had not slept well, could not get an IV in and was stuck several times. She had to get anxiolytics and felt better and had a good nite sleep. She now has a PICC line. - Objective Vital Signs Temp Pulse Resp BP Pulse Ox 08/29/18 11:28 98.7 F 108 H 20 110/63 98 08/29/18 07:32 98 08/29/18 07:31 97.8 F 104 H 107/63 94 L 08/29/18 04:20 107 H 18 111/87 100 Weight 216 lb 0.848 oz 08/28/18 08/29/18 08/30/18 06:59 06:59 06:59 Intake Total 2450 3495 Output Total 200 900 Balance 2250 2595 - Physical Examination General/Neuro: alert & oriented x3, NAD Neck: no JVD present Lungs: CTA, unlabored respirations Heart: RRR Abdomen: NT/ND Extremities: other: (no edema.) - Telemetry Telemetry Rhythm: Afib HR 80's. - Labs Result Diagrams: 08/29/18 05:02 08/29/18 05:02 Troponin/CKMB CK-MB (CK-2) 2.5 ng/mL (0-6.6) 08/27/18 19:40 Troponin I 0.048 ng/mL (< 0.028) H 08/27/18 19:40 - Assessment/Plan 1. Afib RVR, rate control. 2. Multilobar pneumonia 3. Hx of afib and aflutter ablation. 4. Hx of GI Bleeding while on xarelto and plavix. 5. Anxiety. 6. TREVOR on CKD stage 4. PLAn: - Continue SQ lovenox for stroke prophylaxis. - BID PPI for GI bleed prevention. - Will transition IV dilt to PO for continued rate control. - Once infection controlled and if she remains in afib will plan on HUMA/DCCV. - EP recs appreciated. May be a candidate for a watchman in the future. - Will follow.
--- NOTE | 2018-08-29 14:21 | PQF ---
LUIS MEDLEY MARIELLE HUSSEIN [id number] [facility]- B04 [id number] CLINICAL DOCUMENTATION IMPROVEMENT CLARIFICATION FORM: ICD-10 Updated PLEASE DO AN ADDENDUM TO THE PROGRESS NOTE WITH ANY DOCUMENTATION UPDATES OR ADDITIONS AND CARRY THROUGH TO DC SUMMARY. THANK YOU. DATE: 08-29-18 ATTN: DR. MARIELLE HUSSEIN Please exercise your independent, professional judgment in responding to the clarification form. Clinical indicators are provided on the bottom of this form for your review Please check appropriate box(es): [ ] Sepsis due to Streptococcal Pneumonia [ x ] Severe sepsis due to Streptococcal Pneumonia with acute organ dysfunction of TREVOR [ ] Localized infection without sepsis [ ] Other diagnosis [ ] Unable to determine In addition, please specify: Present on Admission (POA): [ x ] Yes [ ] No [ ] Unable to determine For continuity of documentation, please document condition throughout progress notes and discharge summary. Thank You. CLINICAL INDICATORS - SIGNS / SYMPTOMS / LABS ED: SEPSIS; PNA; TACHYCARDIA SEPSIS ALERT FROM [facility] - FOR SEPSIS AND PNA P 124-165 RR 19-30 O2 SAT 95% ON RA - 100% ON 2LNC T 100.4 ORAL LABS: WBC BANDS 08-28 16.2 16 08-29 (RANDY): TREVOR ON CKD D/T CARDIORENAL SYNDROME AND NSAID USE RISK FACTORS H&P (ORESTES): * [facility] - FOUND TO HAVE PNEUMONIA AND SEPSIS * HX DM TYPE 2 * COMMUNITY-ACQUIRED PNA TREATMENTS: MAR: NS IV BOLUS 1L 08-27 VANCOMYCIN IV 08-27 MAXIPIME IV 08-28 / 08-29 DOXYCYCLINE IV 08-28 / 08-29 AZTREONAM IV 08-28 THANK YOU, SONYA (This form is maintained as a part of the permanent medical record) 2015 [employer], [employer]. All Rights Reserved Sonya Aviles, RN, BS [email or web address] [facility]
--- NOTE | 2018-08-29 15:12 | SPC ---
ULTRASOUND AND FLUOROSCOPIC GUIDED PICC LINE PLACEMENT: 08/29/18 HISTORY: Need for [facility] IV access. COMPARISON: None. TECHNIQUE/FINDINGS: The patient was brought to the Specials Suite. All questions were answered. Informed consent was obta ined. Timeout was performed. The patient's left arm was prepped and draped in a normal sterile fashion. Using ultrasound guidance, the left basilic vein was accessed using a micropuncture set. Over a wire and through a peel away sh eath, the dual lumen PICC was place and cut at 45 cm. The patient tolerated the procedure well withou t complication. IMPRESSION: Technically successful ultrasound and fluoroscopic guided PICC line placement. Fluoro time: 0.5 minutes. Dose: 4092 mGy*cm2. POS: ALFONZO
--- NOTE | 2018-08-29 15:33 | PRG ---
DATE OF SERVICE: 08/29/2018 SUBJECTIVE: A 73-year-old female, being seen for acute kidney injury. The patient denied any nausea, vomiting, or chest pain. OBJECTIVE: CONSTITUTIONAL: On examination, the patient is awake and alert. VITAL SIGNS: Afebrile. Pulse 100, breathing 16, and blood pressure 110/60. GENERAL APPEARANCE AND MENTAL STATUS: Fair. HEAD/NECK: Normocephalic. Atraumatic. EYES: EOMI. No deformity. EARS: Clear. No ulcers. NOSE: Intact. No lesions. MOUTH: Clear. No discharge. THROAT: Clear. No exudate. LUNGS: Clear. No crackles. CARDIAC: S1, S2. No rub. ABDOMEN: Benign. Bowel sounds positive. GENITALIA/RECTUM: Iniguez absent. BACK/EXTREMITIES: Edema 0+. NEUROLOGICAL: Alert and motor intact. SKIN: LYMPHATICS: LABORATORY DATA: Labs show hemoglobin of 9.6. Creatinine of 1.8. IMPRESSION: 1. Acute kidney injury with chronic kidney disease due to cardiorenal syndrome. Continue gentle hydration. 2. Metabolic acidosis, stable. 3. Hyponatremia, stable. No indication for dialysis. We will follow renal function closely. Job ID: [id number]
[2018-08-29] MEDS: Atorvastatin Calcium 20 MG TAB PO SCH (20:56)
[2018-08-29] MEDS ORDERED: Diltiazem HCl SR 60 mg Capsule PO SCH (21:00)
[2018-08-29] MEDS: HumaLOG 300 UNITS/3 ML VIAL SC PRN (21:10)
[2018-08-29] MEDS: Insulin Glargine 25 UNITS in Pre-Filled Syringe 1 EACH SC SCH (21:10)
[2018-08-29] MEDS: Zolpidem Tartrate 5 MG TAB PO PRN (22:06)
[2018-08-30 05:02] LABS: Anion Gap 11 mmol/L (10-20); BUN (Urea Nitrogen) 74 mg/dL (9.8-20.1); Calc. Creatinine Clearance 44 mL/min (70-130); Calcium 7.4 mg/dL (7.8-10.44); Carbon Dioxide 19 mmol/L (23-31); Chloride 111 mmol/L (98-107); Estimated GFR-MDRD 29; Glucose 120 mg/dL (83-110); Potassium 4.4 mmol/L (3.5-5.1); Sodium 137 mmol/L (136-145)
[2018-08-30 05:59] LABS: Band 2 % (5-11); Hemoglobin 7.9 g/dL (12.0-16.0); Lymphocytes 10 % (21-51); MDiff Complete? YES; Mean Corpuscular HGB CONC 33.2 g/dL (32.0-36.0); Mean Corpuscular Hemoglobin 32.3 pg (27.0-31.0); Mean Corpuscular Volume 97.2 fL (78.0-98.0); Mean Platelet Volume 7.8 fL (7.4-10.4); Monocytes 6 % (0-10); Neutrophil 82 % (42-75); PLT Morphology Comment Appears Adequate; Platelet Count 206 thou/uL (130-400); RBC Distribution Width 11.9 % (11.5-14.5); RBC Morphology Normal; Red Blood Cell (RBC) Count 2.46 mill/uL (4.20-5.40); White Blood Cell (WBC) Count 7.8 thou/uL (4.8-10.8)
[2018-08-30] MEDS: Mometasone/Formoterol 120 PUFF INHALER INH SCH ×2 (07:05→18:47)
[2018-08-30] MEDS: Cefepime 1 GM in Sodium Chloride 0.9% 100 ML IVPB SCH ×2 (08:22→20:50)
[2018-08-30] MEDS: Doxycycline 100 MG CAP PO SCH ×2 (08:26→20:49)
[2018-08-30] MEDS: Metoprolol Tartrate 25 MG TAB PO SCH ×2 (08:26→20:49)
--- NOTE | 2018-08-30 08:35 | PDOC.CTH ---
Cardiology Progress Note - Subjective Status has worsened. Pain present to abdominal region last pm. Significant echymosis present. HB has decreased from 10 to 7.9 - Objective Vital Signs Temp Pulse Resp BP Pulse Ox 08/30/18 08:00 99 08/30/18 07:14 97.6 F 123 H 24 H 110/65 99 08/30/18 07:05 134 H 12 99 08/30/18 03:54 98.8 F 95 18 124/71 97 08/29/18 23:59 97.2 F L 74 16 105/72 99 Weight 222 lb 10.67 oz 08/29/18 08/30/18 08/31/18 06:59 06:59 06:59 Intake Total 3495 1650 Output Total 900 825 Balance 2595 825 - Physical Examination General/Neuro: NAD Neck: no JVD present Lungs: CTA, unlabored respirations Heart: PMI normal, other: (irr) Abdomen: no HSM, NT/ND, soft, other: (ecchymosis tothe abdomnal wall ) Extremities: + femoral B - Labs Result Diagrams: 08/30/18 04:28 08/30/18 04:28 Troponin/CKMB CK-MB (CK-2) 2.5 ng/mL (0-6.6) 08/27/18 19:40 Troponin I 0.048 ng/mL (< 0.028) H 08/27/18 19:40 - Assessment/Plan 1. Afib RVR, rate control. 2. Multilobar pneumonia 3. Hx of afib and aflutter ablation. 4. Hx of GI Bleeding while on xarelto and plavix. 5. Anxiety. 6. TREVOR on CKD stage 4. Decrease Hb from 10 to 7.9 in two days Stop ACT Use SCD for DVT prophylaxis Pt at risk of CVA but also at risk of recurrent bleeding Not a candidate for CV if not able to ACT CT scan of abdomen without contrast secondary to abd pain, ecchymosis and low Hb
[2018-08-30] MEDS ORDERED: Enoxaparin Sodium 100 MG/ML SYRINGE SC SCH (09:00)
[2018-08-30] MEDS: Famotidine/PF 20 mg/2ml Vial SLOW IVP SCH (09:41)
[2018-08-30] MEDS: HumaLOG 300 UNITS/3 ML VIAL SC PRN ×2 (11:03→20:56)
--- NOTE | 2018-08-30 11:11 | PRG ---
DATE OF SERVICE: 08/30/2018 SUBJECTIVE: A 73-year-old female, being seen for acute kidney injury. The patient denied any nausea, vomiting, or chest pain. OBJECTIVE: CONSTITUTIONAL: On examination, the patient is awake and alert. VITAL SIGNS: Afebrile, pulse 123, breathing 16, and blood pressure 110/65. GENERAL APPEARANCE AND MENTAL STATUS: Fair. HEAD/NECK: Normocephalic. Atraumatic. EYES: EOMI. No deformity. EARS: Clear. No ulcers. NOSE: Intact. No lesions. MOUTH: Clear. No discharge. THROAT: Clear. No exudate. LUNGS: Clear. No crackles. CARDIAC: S1, S2. No rub. ABDOMEN: Benign. Bowel sounds positive. GENITALIA/RECTUM: Iniguez absent. BACK/EXTREMITIES: Edema 0+. NEUROLOGICAL: Alert and motor intact. LABORATORY DATA: Hemoglobin 7.9. Creatinine 1.7. ASSESSMENT AND PLAN: 1. Acute kidney injury, stable. 2. Hypertension, stable. 3. Metabolic acidosis, improved. 4. Cardiorenal syndrome. Management per Primary Team. 5. Hypocalcemia, to recommend calcium supplement. Job ID: [id number]
--- NOTE | 2018-08-30 13:52 | PDOC.PN ---
- Subjective Encounter Start Date: 08/30/18 Encounter Start Time: 10:20 Pt seen for followup re: pneumonia. Feels slightly better. No fevers. - Objective Resuscitation Status - Order Detail: 08/27/18 21:44 Resuscitation Status Routine Resuscitation Status: FULL: Full Resuscitation MAR Reviewed: Yes Vital Signs & Weight: Vital Signs (12 hours) Temp Pulse Resp BP Pulse Ox 08/30/18 11:51 97.8 F 94 24 H 134/87 08/30/18 08:00 99 08/30/18 07:14 97.6 F 123 H 24 H 110/65 99 08/30/18 07:05 134 H 12 99 08/30/18 03:54 98.8 F 95 18 124/71 97 Weight Weight 222 lb 10.67 oz I&O: 08/29/18 08/30/18 08/31/18 06:59 06:59 06:59 Intake Total 3495 1650 Output Total 900 825 Balance 2595 825 Result Diagrams: 08/31/18 04:24 08/31/18 04:24 Additional Labs: Accuchecks 08/30/18 08/30/18 08/29/18 10:55 05:33 20:14 POC Glucose 220 H 137 H 381 H 08/29/18 16:52 POC Glucose 302 H EKG Reviewed by me: Yes (tele: lee gamnio) Phys Exam - Physical Examination Obese HEENT: moist MMs, sclera anicteric, oral pharynx no lesions, 2+ tonsils Neck: no nodes, no JVD, supple, full ROM Respiratory: clear to auscultation bilateral decreased air entry right base Cardiovascular: no rub, irregular S1, s2 Gastrointestinal: soft, non-tender, no distention, positive bowel sounds Neurological: moves all 4 limbs Psychiatric: normal affect, A&O x 3 Deviation from normal: abdominal wall bruising Dx/Plan (1) Pneumonia Code(s): J18.9 - PNEUMONIA, UNSPECIFIED ORGANISM Status: Acute Comment: continue IV antibiotics as below for suspected streptococcal pneumonia (2) Atrial fibrillation with RVR Code(s): I48.91 - UNSPECIFIED ATRIAL FIBRILLATION Status: Acute Comment: continue oral cardizem, rate-controlled now (3) HTN (hypertension) Code(s): I10 - ESSENTIAL (PRIMARY) HYPERTENSION Status: Chronic Qualifiers: Hypertension type: essential hypertension Qualified Code(s): I10 - Essential (primary) hypertension Comment: controlled (4) DM2 (diabetes mellitus, type 2) Status: Chronic Comment: continue accuchecks, insulin sliding scale - Plan * . Review of Systems - Review of Systems Constitutional: negative: fever, chills, sweats, weakness, malaise Respiratory: Cough, Sputum. negative: Dry, Shortness of Breath, Hemoptysis, SOB with Excertion, Pleuritic Pain, Wheezing Cardiovascular: negative: chest pain, palpitations, orthopnea, paroxysmal nocturnal dyspnea, edema, light headedness Genitourinary: negative: Dysuria, Frequency, Incontinence, Hematuria, Retention Skin: Bruising. negative: Rash, Lesions, Ubaldo Neurological: negative: Weakness, Numbness, Incoordination, Change in Speech, Confusion, Seizures - Medications/Allergies Allergies/Adverse Reactions: Allergies Allergy/AdvReac Type Severity Reaction Status Date / Time lisinopril Allergy Verified 08/28/18 01:09 Penicillins Allergy Verified 08/28/18 01:09 Medications: Current Medications Acetaminophen (Tylenol) 650 mg PO Q4H PRN PRN Reason: Headache/Fever/Mild Pain (1-3) Last Admin: 08/29/18 20:56 Dose: 650 mg Acetaminophen (Tylenol) 650 mg [place] Q4H PRN PRN Reason: Headache/Fever/Mild Pain (1-3) Atorvastatin Calcium (Lipitor) 10 mg PO HS [facility] Last Admin: 08/29/18 20:56 Dose: 10 mg Cholecalciferol (Vitamin D3) 2,000 units PO DAILY [facility] Last Admin: 08/30/18 08:26 Dose: 2,000 units Dextrose/Water (Dextrose 50%) 25 gm SLOW IVP PRN PRN PRN Reason: Hypoglycemia Diltiazem HCl (Cardizem) 30 mg PO QID [facility] Last Admin: 08/30/18 13:11 Dose: 30 mg Doxycycline Hyclate (Vibramycin) 100 mg PO BID [facility] Last Admin: 08/30/18 08:26 Dose: 100 mg Famotidine (Pepcid) 20 mg PO Q12HR [facility] Glucagon (Glucagon) 1 mg IM PRN PRN PRN Reason: Hypoglycemia Guaifenesin/Dextromethorphan (Robitussin Dm) 10 ml PO Q4H PRN PRN Reason: Cough Last Admin: 08/28/18 03:02 Dose: 10 ml Dextrose/Water (D5w) 1,000 mls @ 0 mls/hr IV .Q0M PRN PRN Reason: Hypoglycemia Cefepime HCl 1 gm/ Sodium (Chloride) 100 mls @ 200 mls/hr IVPB Q12HR [facility] Last Admin: 08/30/18 08:22 Dose: 100 mls Insulin Glargine 25 units/ (Miscellaneous Medication) 0.25 mls @ 0 mls/hr SC HS [facility] Last Admin: 08/29/18 21:10 Dose: 0.25 mls Insulin Human Lispro (Humalog) 0 units SC .MODERATE SLIDING SC PRN PRN Reason: Moderate Correctional Scale Last Admin: 08/30/18 11:03 Dose: 4 unit Methylprednisolone Sodium Succinate (Solu-Medrol) 40 mg IVP BID [facility] Last Admin: 08/30/18 08:28 Dose: 40 mg Metoprolol Tartrate (Lopressor) 12.5 mg PO BID [facility] Last Admin: 08/30/18 08:26 Dose: 12.5 mg Mometasone Furoate/Formoterol Fumar (Dulera 200 Mcg/5 Mcg Inhaler) 2 puff INH BID-RT [facility] Last Admin: 08/30/18 07:05 Dose: 2 puff Pantoprazole Sodium (Protonix) 40 mg PO BID [facility] Last Admin: 08/30/18 08:28 Dose: 40 mg Sodium Chloride (Flush - Normal Saline) 10 ml IVF Q12HR [facility] Last Admin: 08/30/18 08:29 Dose: 10 ml Sodium Chloride (Flush - Normal Saline) 10 ml IVF PRN PRN PRN Reason: Saline Flush Zolpidem Tartrate (Ambien) 5 mg PO HSPRN PRN PRN Reason: Insomnia Last Admin: 08/29/18 22:06 Dose: 5 mg
--- NOTE | 2018-08-30 14:11 | CT ---
NONCONTRAST CT ABDOMEN AND PELVIS: DATE: 08/30/2018. HISTORY: Abdominal pain and low hemoglobin. Bruising noted around abdomen. COMPARISON: None available. FINDINGS: There is a heterogeneous but predominantly increased mass-like density seen within the right rectus s sylvie beginning at the level to the mid abdomen and extending to the mid pelvis most compatible with a rectus sheath hematoma. This rectus sheath hematoma measures 16.9 cm craniocaudal x 10 cm transver se x 4.6 cm AP in maximal dimensions. There is subcutaneous edema seen about the abdomen with a few focal gas densities in the left anterol ateral subcutaneous soft tissues lower abdomen upper pelvis likely related to prior injections. Tiny bilateral pleural effusions and associated passive atelectasis are present. There is a suggesti on of minimal peribronchial thickening of the left lung base and to a lesser extent on the right whic h could be related to bronchiolitis and infectious/inflammatory process as a few reticulonodular dens ities are seen at the left lung base. Multiple tiny gallbladder calculi are seen. The liver, spleen, atrophied pancreas, bilateral adrenal glands, kidneys, and urinary bladder demonst rate a grossly normal nonenhanced CT appearance. The uterus is not visualized likely related to prior hysterectomy. A tiny punctate focus of gas is s een in the urinary bladder which may be related to a recent catheterization, and clinical correlation is suggested. Vascular calcifications are seen in the abdominal aorta and involving the iliac arteries. There is a subcutaneous nodule just beneath the skin surface at the posterolateral right flank region which measures approximately 1.4 cm. This could potentially represent a sebaceous cyst but is diffi cult to characterize on this nonenhanced CT exam. Degenerative changes are noted in the spine. IMPRESSION: 1. Large right rectus sheath hematoma. 2. Small bilateral pleural effusions and atelectasis in addition to mild reticulonodular densities a t the left lung base with slight peribronchial thickening. Findings may be related to inflammatory p rocess/bronchiolitis. 3. Cholelithiasis. 4. Hysterectomy. 5. Punctate focus of gas in the urinary bladder, which may be related to recent catheterization, but clinical correlation is suggested. 6. Subcutaneous nodule right posterolateral flank. This is of uncertain etiology and is difficult t o further characterize. POS: ALFONZO
[2018-08-30] MEDS ORDERED: Furosemide 40 MG/4 ML VIAL IVP SCH (17:00)
[2018-08-30] MEDS ORDERED: diphenhydrAMINE 25 MG CAP PO SCH (17:00)
[2018-08-30] MEDS ORDERED: Acetaminophen 325 MG TAB PO SCH (17:00)
--- NOTE | 2018-08-30 17:05 | PRG ---
DATE OF SERVICE: 08/30/2018 SERVICE: Pulmonary Medicine. INTERVAL HISTORY: The patient is doing really well from respiratory standpoint. She is breathing comfortably today. She was having some belly discomfort yesterday, but it has resolved today. She has not had any more bowel movements that have been bloody. PHYSICAL EXAMINATION: VITAL SIGNS: Afebrile, pulse 117, blood pressure 134/98, respirations 17, and saturation 95% on room air. GENERAL: The patient is awake and alert, in no apparent distress. LUNGS: Excellent air entry. There is no prolonged expiratory phase. Rhonchi are present. They clear with cough. There is no wheezing. HEART: Normal rate, regular. ABDOMEN: Soft, nontender, and nondistended. Bowel sounds are positive. MUSCULOSKELETAL: No cyanosis or clubbing. There is no pitting in the bilateral lower extremities. NEUROLOGIC: Grossly nonfocal. LABORATORY DATA: WBC 7.8, hemoglobin 7.9, and platelets 206,000. Neutrophil count is 82% on top of 2% bands. Creatinine is downtrending to 1.73 and BUN 74. Basic metabolic profile is otherwise unremarkable. Urine strep antigen is positive. Legionella antigen is unremarkable. Sputum is growing Staph aureus. Sensitivities are currently pending. C. diff antigen and toxin are unremarkable. Urine culture is negative, original respiratory culture was unremarkable, influenza A and B are negative, and blood cultures x2 are also unremarkable. IMAGING: CT of the abdomen and pelvis demonstrates large rectus sheath hematoma. Small bilateral pleural effusions and atelectasis. There is some peribronchial thickening and other inflammatory bronchiolitis noted. No overt consolidating changes are seen in the visualized portion of the lung. ASSESSMENT: 1. Acute hypoxic respiratory failure. 2. Community-acquired pneumonia, left upper lobe. 3. Acute blood loss anemia. 4. Rectus sheath hematoma. DISCUSSION AND PLAN: All anticoagulation and antiplatelet medications have been interrupted. Supportive care will be continued. We will trend her hemoglobin through time. I will initiate a little bit of half-normal saline as the patient's appetite has not perked up yet. Pulmonary/Critical Care will continue to follow, but she will need to remain in this location until her hemoglobin stabilizes. Job ID: [id number]
[2018-08-30] MEDS: Furosemide 20 MG/2 ML VIAL SLOW IVP SCH ×2 (17:25→19:37)
--- NOTE | 2018-08-30 18:30 | EKG ---
Test Reason : Blood Pressure : / mmHG Vent. Rate : 144 BPM Atrial Rate : 144 BPM P-R Int : 000 ms QRS Dur : 078 ms QT Int : 304 ms P-R-T Axes : 000 -05 125 degrees QTc Int : 470 ms Sinus tachycardia Abnormal ECG Confirmed by AMA ELLIS DO ([id number]), slot editor FER LYNCH ([id number]) on 08/30/2018 6:29:26 PM Referred By: Confirmed By:AMA ELLIS DO
[2018-08-30] MEDS: Sodium Chloride 0.45% 1,000 ML IV SCH (19:44)
[2018-08-30] MEDS: Zolpidem Tartrate 5 MG TAB PO PRN (20:48)
[2018-08-30] MEDS: Atorvastatin Calcium 20 MG TAB PO SCH (20:49)
[2018-08-30] MEDS: Famotidine 20 MG TAB PO SCH (20:49)
[2018-08-30] MEDS: Insulin Glargine 25 UNITS in Pre-Filled Syringe 1 EACH SC SCH (20:50)
[2018-08-30] MEDS: Acetaminophen 325 MG TAB PO PRN (20:56)
[2018-08-30 21:42] LABS: Hemoglobin 10.3 g/dL (12.0-16.0); Platelet Count 192 thou/uL (130-400)
[2018-08-31 04:30] LABS: #Monocytes 0.8 thou/uL (0.11-0.59); #Neutrophils 6.4 thou/uL (1.40-6.50); %Eosinophils 0.5 % (0.0-10.0); %Lymphocytes 12.6 % (21.0-51.0); %Neutrophils 77.9 % (42.0-75.0); Hemoglobin 10.9 g/dL (12.0-16.0); Mean Corpuscular HGB CONC 34.9 g/dL (32.0-36.0); Mean Corpuscular Hemoglobin 32.6 pg (27.0-31.0); Mean Corpuscular Volume 93.4 fL (78.0-98.0); Platelet Count 203 thou/uL (130-400); RBC Distribution Width 12.8 % (11.5-14.5); Red Blood Cell (RBC) Count 3.34 mill/uL (4.20-5.40); White Blood Cell (WBC) Count 8.3 thou/uL (4.8-10.8)
[2018-08-31 04:52] LABS: Anion Gap 14 mmol/L (10-20); BUN (Urea Nitrogen) 70 mg/dL (9.8-20.1); Calc. Creatinine Clearance 48 mL/min (70-130); Carbon Dioxide 18 mmol/L (23-31); Chloride 110 mmol/L (98-107); Estimated GFR-MDRD 30; Glucose 207 mg/dL (83-110); Magnesium 1.7 mg/dL (1.6-2.6); Potassium 4.3 mmol/L (3.5-5.1); Sodium 138 mmol/L (136-145)
[2018-08-31 04:54] LABS: Phosphorus 3.6 mg/dL (2.3-4.7)
[2018-08-31] MEDS: HumaLOG 300 UNITS/3 ML VIAL SC PRN ×3 (06:12→20:39)
[2018-08-31] MEDS: Acetaminophen 325 MG TAB PO PRN ×4 (06:36→23:41)
--- NOTE | 2018-08-31 08:03 | PDOC.CTH ---
Cardiology Progress Note - Subjective Less abdominal pain present. Hb has stabilized - Objective Vital Signs Temp Pulse Resp BP Pulse Ox 08/31/18 07:39 100 08/31/18 07:28 98.4 F 119 H 22 H 161/88 H 08/31/18 04:20 97.8 F 69 23 H 117/87 100 08/31/18 01:52 76 117/67 08/31/18 00:16 97.2 F L 84 24 H 148/84 H 100 08/30/18 22:55 100 18 148/84 H 99 Weight 222 lb 10.67 oz 08/30/18 08/31/18 09/01/18 06:59 06:59 06:59 Intake Total 1650 2340 Output Total 825 1500 Balance 825 840 - Physical Examination General/Neuro: alert & oriented x3, NAD Neck: carotid US brisk, no JVD present Lungs: CTA, unlabored respirations Heart: other: (irr) Abdomen: no HSM, NT/ND, soft Extremities: + femoral B - Telemetry Telemetry Rhythm: IRR - Labs Result Diagrams: 08/31/18 04:24 08/31/18 04:24 Troponin/CKMB CK-MB (CK-2) 2.5 ng/mL (0-6.6) 08/27/18 19:40 Troponin I 0.048 ng/mL (< 0.028) H 08/27/18 19:40 - Assessment/Plan Rectus sheath hematoma afib pneumonia obesity Hb appears to have stabilized. Repeat Hb at 1700 today Rate control her HR with IV CCB supplemented by PO Increase PO CCB to 90 Q^H and decrease IV to 2.5mg/hr Abx
[2018-08-31] MEDS: Mometasone/Formoterol 120 PUFF INHALER INH SCH ×2 (08:36→19:11)
[2018-08-31] MEDS: Doxycycline 100 MG CAP PO SCH ×2 (08:59→20:32)
[2018-08-31] MEDS: Metoprolol Tartrate 25 MG TAB PO SCH ×2 (08:59→20:33)
[2018-08-31] MEDS: Cefepime 1 GM in Sodium Chloride 0.9% 100 ML IVPB SCH ×2 (09:00→20:37)
[2018-08-31] MEDS: Famotidine 20 MG TAB PO SCH ×2 (09:00→20:33)
[2018-08-31] MEDS ORDERED: Diltiazem HCl 125 MG, Admixture Fee 1 EACH in Sodium Chloride 0.9% 100 ML IVPB SCH (14:00)
--- NOTE | 2018-08-31 14:32 | PRG ---
DATE OF SERVICE: 08/31/2018 SUBJECTIVE: A 73-year-old female, being seen for acute kidney injury. The patient denies any nausea, vomiting, or chest pain. OBJECTIVE: CONSTITUTIONAL: The patient is awake and alert. VITAL SIGNS: Afebrile. Pulse 77, breathing 16, and blood pressure 142/74. GENERAL APPEARANCE AND MENTAL STATUS: Fair. HEAD/NECK: Normocephalic. Atraumatic. EYES: EOMI. No deformity. EARS: Clear. No ulcers. NOSE: Intact. No lesions. MOUTH: Clear. No discharge. THROAT: Clear. No exudate. LUNGS: Clear. No crackles. CARDIAC: S1, S2. No rub. ABDOMEN: Benign. Bowel sounds positive. GENITALIA/RECTUM: Iniguez absent. BACK/EXTREMITIES: Edema 0+. NEUROLOGICAL: Alert and motor intact. LABORATORY DATA: Hemoglobin 10.2. ASSESSMENT AND PLAN: 1. Stage 3 chronic kidney disease, stable. 2. Acute kidney injury, stable. 3. Metabolic acidosis, stable. 4. Medications based on GFR are appropriate. Job ID: [id number]
--- NOTE | 2018-08-31 15:24 | PRG ---
DATE OF SERVICE: 08/31/2018 SERVICE: Pulmonary Medicine. INTERVAL HISTORY: The patient is doing great from respiratory standpoint. Denies any current chest pain, fevers, chills, nausea, or vomiting. She hurts everywhere. She is having a scratchy throat and a sore tongue. She also has pain on her lips. Otherwise, there has been no notable change to her condition. PHYSICAL EXAMINATION: VITAL SIGNS: Afebrile. Pulse 97, blood pressure 142/75, respirations 16, and saturation 97% on room air. GENERAL: The patient is awake and alert, in no apparent distress. LUNGS: Decent air entry. Crackles are dependently present. There is no prolonged expiratory phase or wheezing present. HEART: Normal rate, regular. ABDOMEN: Soft, nontender, and nondistended. Bowel sounds are positive. MUSCULOSKELETAL: No cyanosis or clubbing. There is no pitting in the bilateral lower extremities. NEUROLOGIC: Grossly nonfocal. LABORATORY DATA: WBC 8.3, hemoglobin 10.9, platelets 203,000. Creatinine 1.65 and downtrending, BUN 70. Basic metabolic profile, magnesium and phosphorus are otherwise unremarkable. ASSESSMENT: 1. Acute hypoxic respiratory failure. 2. Community-acquired pneumonia, left upper lobe. 3. Acute blood loss anemia. 4. Rectus sheath hematoma. 5. Herpes labialis. DISCUSSION AND PLAN: I will put her on acyclovir for 5 days. Hopefully, this will help with her lip discomfort, tongue discomfort, and throat discomfort. She did not have any significant exudate in the back of her throat. There was some erythema there however. We will interrupt her IV fluids. Otherwise, supportive measures will be continued including antibiotics. We will mobilize the patient as much as she can tolerate. Job ID: [id number]
--- NOTE | 2018-08-31 15:34 | PDOC.PN ---
- Subjective Encounter Start Date: 08/31/18 Encounter Start Time: 10:40 Pt seen for followup re: pneumonia. Feels better. Abdo bruise better. - Objective Resuscitation Status - Order Detail: 08/27/18 21:44 Resuscitation Status Routine Resuscitation Status: FULL: Full Resuscitation MAR Reviewed: Yes Vital Signs & Weight: Vital Signs (12 hours) Temp Pulse Pulse Resp BP BP BP 08/31/18 15:25 97 16 08/31/18 09:14 97 142/75 H 152/70 H 08/31/18 08:36 97 16 08/31/18 08:28 08/31/18 08:26 77 16 08/31/18 07:39 08/31/18 07:28 98.4 F 119 H 22 H 161/88 H 08/31/18 04:20 97.8 F 69 23 H 117/87 Pulse Ox 08/31/18 15:25 08/31/18 09:14 08/31/18 08:36 08/31/18 08:28 97 08/31/18 08:26 08/31/18 07:39 100 08/31/18 07:28 08/31/18 04:20 100 Weight Weight 222 lb 10.67 oz I&O: 08/30/18 08/31/18 09/01/18 06:59 06:59 06:59 Intake Total 1650 2340 Output Total 825 1500 850 Balance 825 840 -850 Result Diagrams: 08/31/18 04:24 08/31/18 04:24 Additional Labs: Accuchecks 08/31/18 08/31/18 08/30/18 10:45 06:13 20:12 POC Glucose 180 H 214 H 272 H 08/30/18 17:10 POC Glucose 180 H EKG Reviewed by me: Yes (Tele: lee gamino) Phys Exam - Physical Examination Obese HEENT: moist MMs Neck: supple Respiratory: clear to auscultation bilateral Cardiovascular: irregular Gastrointestinal: soft Neurological: moves all 4 limbs Psychiatric: normal affect Dx/Plan (1) Pneumonia Code(s): J18.9 - PNEUMONIA, UNSPECIFIED ORGANISM Status: Acute Comment: continue IV cefepime (2) Rectus sheath hematoma Code(s): S30.1XXA - CONTUSION OF ABDOMINAL WALL, INITIAL ENCOUNTER Status: Acute Comment: Lovenox discontinued. Hemoglobin stable. (3) Herpes labialis Code(s): B00.1 - HERPESVIRAL VESICULAR DERMATITIS Status: Acute Comment: started on acyclovir (4) Atrial fibrillation with RVR Code(s): I48.91 - UNSPECIFIED ATRIAL FIBRILLATION Status: Acute Comment: rate-controlled now with oral cardizem (5) HTN (hypertension) Code(s): I10 - ESSENTIAL (PRIMARY) HYPERTENSION Status: Chronic Qualifiers: Hypertension type: essential hypertension Qualified Code(s): I10 - Essential (primary) hypertension Comment: controlled (6) DM2 (diabetes mellitus, type 2) Status: Chronic Comment: on accuchecks, insulin sliding scale - Plan * . Review of Systems - Review of Systems ENT: Throat Pain Respiratory: negative: Cough, Shortness of Breath, SOB with Excertion, Pleuritic Pain, Wheezing Cardiovascular: negative: chest pain, palpitations, orthopnea, paroxysmal nocturnal dyspnea, edema, light headedness - Medications/Allergies Allergies/Adverse Reactions: Allergies Allergy/AdvReac Type Severity Reaction Status Date / Time lisinopril Allergy Verified 08/28/18 01:09 Penicillins Allergy Verified 08/28/18 01:09 Medications: Current Medications Acetaminophen (Tylenol) 650 mg PO Q4H PRN PRN Reason: Headache/Fever/Mild Pain (1-3) Last Admin: 08/31/18 09:48 Dose: 650 mg Acetaminophen (Tylenol) 650 mg [place] Q4H PRN PRN Reason: Headache/Fever/Mild Pain (1-3) Acyclovir (Zovirax) 400 mg PO TID [facility] Stop: 09/05/18 21:01 Albuterol/Ipratropium (Duoneb) 3 ml NEB [id number] [facility] Last Admin: 08/31/18 15:25 Dose: 3 ml Atorvastatin Calcium (Lipitor) 10 mg PO HS [facility] Last Admin: 08/30/18 20:49 Dose: 10 mg Cholecalciferol (Vitamin D3) 2,000 units PO DAILY [facility] Last Admin: 08/31/18 09:00 Dose: 2,000 units Dextrose/Water (Dextrose 50%) 25 gm SLOW IVP PRN PRN PRN Reason: Hypoglycemia Diltiazem HCl (Cardizem) 90 mg PO Q6HR [facility] Last Admin: 08/31/18 14:25 Dose: 90 mg Doxycycline Hyclate (Vibramycin) 100 mg PO BID [facility] Last Admin: 08/31/18 08:59 Dose: 100 mg Famotidine (Pepcid) 20 mg PO Q12HR [facility] Last Admin: 08/31/18 09:00 Dose: 20 mg Glucagon (Glucagon) 1 mg IM PRN PRN PRN Reason: Hypoglycemia Guaifenesin/Dextromethorphan (Robitussin Dm) 10 ml PO Q4H PRN PRN Reason: Cough Last Admin: 08/28/18 03:02 Dose: 10 ml Dextrose/Water (D5w) 1,000 mls @ 0 mls/hr IV .Q0M PRN PRN Reason: Hypoglycemia Cefepime HCl 1 gm/ Sodium (Chloride) 100 mls @ 200 mls/hr IVPB Q12HR [facility] Last Admin: 08/31/18 09:00 Dose: 100 mls Insulin Glargine 25 units/ (Miscellaneous Medication) 0.25 mls @ 0 mls/hr SC HS [facility] Last Admin: 08/30/18 20:50 Dose: 0.25 mls Diltiazem HCl 125 mg/Miscellaneous Medication 1 each/ Sodium Chloride 125 mls @ 2.5 mls/hr IVPB INF [facility]; Protocol Insulin Human Lispro (Humalog) 0 units SC .MODERATE SLIDING SC PRN PRN Reason: Moderate Correctional Scale Last Admin: 08/31/18 06:12 Dose: 4 unit Methylprednisolone Sodium Succinate (Solu-Medrol) 40 mg IVP DAILY [facility] Stop: 09/03/18 09:01 Last Admin: 08/31/18 09:00 Dose: 40 mg Metoprolol Tartrate (Lopressor) 12.5 mg PO BID [facility] Last Admin: 08/31/18 08:59 Dose: 12.5 mg Mometasone Furoate/Formoterol Fumar (Dulera 200 Mcg/5 Mcg Inhaler) 2 puff INH BID-RT [facility] Last Admin: 08/31/18 08:36 Dose: 2 puff Pantoprazole Sodium (Protonix) 40 mg PO BID [facility] Last Admin: 08/31/18 08:59 Dose: 40 mg Sodium Chloride (Flush - Normal Saline) 10 ml IVF Q12HR [facility] Last Admin: 08/31/18 09:00 Dose: 10 ml Sodium Chloride (Flush - Normal Saline) 10 ml IVF PRN PRN PRN Reason: Saline Flush Zolpidem Tartrate (Ambien) 5 mg PO HSPRN PRN PRN Reason: Insomnia Last Admin: 08/30/18 20:48 Dose: 5 mg
[2018-08-31] MEDS: Acyclovir 400 mg Tablet PO SCH ×2 (16:21→20:32)
[2018-08-31 17:42] LABS: #Basophils 0.1 thou/uL (0.0-0.2); #Lymphocytes 0.4 thou/uL (1.20-3.40); #Monocytes 0.6 thou/uL (0.11-0.59); #Neutrophils 5.5 thou/uL (1.40-6.50); %Basophils 1.9 % (0.0-1.0); %Eosinophils 0.4 % (0.0-10.0); %Monocytes 9.5 % (0.0-10.0); %Neutrophils 82.2 % (42.0-75.0); Hemoglobin 10.2 g/dL (12.0-16.0); Mean Corpuscular HGB CONC 34.2 g/dL (32.0-36.0); Mean Corpuscular Hemoglobin 32.3 pg (27.0-31.0); Mean Corpuscular Volume 94.6 fL (78.0-98.0); Mean Platelet Volume 7.7 fL (7.4-10.4); Platelet Count 188 thou/uL (130-400); RBC Distribution Width 13.1 % (11.5-14.5); Red Blood Cell (RBC) Count 3.16 mill/uL (4.20-5.40); White Blood Cell (WBC) Count 6.7 thou/uL (4.8-10.8)
[2018-08-31] MEDS: Zolpidem Tartrate 5 MG TAB PO PRN ×2 (20:32→23:42)
[2018-08-31] MEDS: Atorvastatin Calcium 20 MG TAB PO SCH (20:33)
[2018-08-31] MEDS: Insulin Glargine 25 UNITS in Pre-Filled Syringe 1 EACH SC SCH (20:39)
[2018-08-31] MEDS: Sodium Chloride 0.45% 1,000 ML IV SCH (21:16)
[2018-09-01 05:45] LABS: Anion Gap 13 mmol/L (10-20); BUN (Urea Nitrogen) 62 mg/dL (9.8-20.1); Calc. Creatinine Clearance 49 mL/min (70-130); Calcium 7.9 mg/dL (7.8-10.44); Carbon Dioxide 19 mmol/L (23-31); Chloride 109 mmol/L (98-107); Estimated GFR-MDRD 31; Glucose 225 mg/dL (83-110); Potassium 4.5 mmol/L (3.5-5.1); Sodium 136 mmol/L (136-145)
[2018-09-01] MEDS: HumaLOG 300 UNITS/3 ML VIAL SC PRN ×3 (06:12→20:35)
[2018-09-01] MEDS: Mometasone/Formoterol 120 PUFF INHALER INH SCH ×2 (07:47→18:17)
[2018-09-01] MEDS: Acyclovir 400 mg Tablet PO SCH ×3 (09:09→20:32)
[2018-09-01] MEDS: Metoprolol Tartrate 25 MG TAB PO SCH ×2 (09:09→20:33)
[2018-09-01] MEDS: Doxycycline 100 MG CAP PO SCH ×2 (09:09→20:33)
[2018-09-01] MEDS: Famotidine 20 MG TAB PO SCH ×2 (09:10→20:34)
[2018-09-01] MEDS: Cefepime 1 GM in Sodium Chloride 0.9% 100 ML IVPB SCH ×2 (09:12→20:34)
--- NOTE | 2018-09-01 10:14 | PRG ---
DATE OF SERVICE: 09/01/2018 SUBJECTIVE: A 73-year-old female, being seen for acute kidney injury. The patient denies nausea, vomiting, or chest pain. OBJECTIVE: GENERAL: The patient is awake and alert. VITAL SIGNS: Afebrile, pulse 100, breathing 16, blood pressure 114/70. GENERAL APPEARANCE AND MENTAL STATUS: Fair. HEAD/NECK: Normocephalic. Atraumatic. EYES: EOMI. No deformity. EARS: Clear. No ulcers. NOSE: Intact. No lesions. MOUTH: Clear. No discharge. THROAT: Clear. No exudate. LUNGS: Clear. No crackles. CARDIAC: S1, S2. No rub. ABDOMEN: Benign. Bowel sounds positive. GENITALIA/RECTUM: Iniguez absent. BACK/EXTREMITIES: Edema 0+. NEUROLOGICAL: Alert and motor intact. SKIN: LYMPHATICS: LABORATORY DATA: Lab showed hemoglobin 10. Creatinine 1.6. ASSESSMENT: 1. Chronic kidney disease, stage 3, stable. 2. Hypertension, stable. 3. Anemia, stable. 4. Medication based on GFR appropriate. Job ID: [id number]
--- NOTE | 2018-09-01 10:27 | PDOC.CTH ---
Cardiology Progress Note - Subjective EP Progress note 09/01/18 Feels less SOB. No DIzzy or LOC. No CP. Lower abndominal discomfort persists. - Objective Vital Signs Temp Pulse Resp BP Pulse Ox 09/01/18 08:04 100 09/01/18 07:47 99 09/01/18 07:44 129 H 21 H 99 09/01/18 07:28 97.8 F 86 18 114/70 99 09/01/18 03:54 97.4 F L 102 H 20 136/66 100 08/31/18 23:43 98.8 F 77 18 114/53 L 92 L Weight 226 lb 9.28 oz 08/31/18 09/01/18 09/02/18 06:59 06:59 06:59 Intake Total 2340 1330 Output Total 1500 1700 Balance 840 -370 - Physical Examination General/Neuro: alert & oriented x3, NAD Neck: carotid US brisk, no JVD present Lungs: CTA Heart: other: (Irreg/irrgeg) Abdomen: no HSM, other: (mild lower abdomonal discomfort. Bruising ) - Telemetry Telemetry Rhythm: afib w rate 90-130 - Labs Result Diagrams: 09/01/18 05:18 09/01/18 05:18 Troponin/CKMB CK-MB (CK-2) 2.5 ng/mL (0-6.6) 08/27/18 19:40 Troponin I 0.048 ng/mL (< 0.028) H 08/27/18 19:40 - Assessment/Plan - Assessment/Plan 1. Atrial fibrillation -remains in AF today -RVR controlled. on diltiazem gtt at 2.5mg/hr. Started on PO Dilt 90 QID. On Metoprolol tartrate 12.5 PO BID-will increase 2. Anemia -h/o esophageal bleed and rectus sheath hematoma. -reports recent coffee ground emesis (last saturday) 3. Community acquired pneumonia -anbx, steroid, and nebs -per pulm. 4. CHADS2-VASC: 5 -continue lovenox 100mg SQ QD 5. Abd pain -extensive bruising -pain with coughing -CT abdomen pos for rectal sheath hematoma. - OAC on hold. 6. 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 Resume OAC when clinioclaly feasible for CVA prophylaxis. Continue rate control for now. Once medically more stable can plan for HUMA/CV then start Multaq 400mg PO BID and start OAC if no further bleeding issues are seen. Further investigation into coffee ground emesis may be reasonable to help clear her for anticoagulation.She has had this in the past but was on Xarelto and plavix at that time. She remains on plavix 37.5 PO BID. 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
--- NOTE | 2018-09-01 12:01 | PRG ---
DATE OF SERVICE: 09/01/2018 SUBJECTIVE: The patient is doing about the same. She is still having problems with cough and congestion. OBJECTIVE: VITAL SIGNS: Temperature is 99.2, pulse 90, respirations 16, O2 saturation 100% on room air, and blood pressure 150/88. HEENT: Unremarkable. NECK: No JVD. LUNGS: Coarse breath sounds bilaterally. CARDIAC: S1 and S2. Irregularly irregular on a Cardizem drip. ABDOMEN: Diffuse hemorrhagic petechiae. EXTREMITIES: Bruised on both arms and/or legs. LABORATORY DATA: Hemoglobin 10 and hematocrit 29.0. Sodium 135, potassium 4.5, chloride 109, CO2 of 19, BUN 62, creatinine 1.6, and glucose 225. ASSESSMENT: 1. Acute hypoxic respiratory failure, slowly improving. 2. Community-acquired pneumonia. 3. Blood loss anemia. 4. Rectus sheath hematoma. 5. Renal insufficiency, which is improving. 6. Herpes labialis. PLAN: The patient is continuing Cardizem for rate control of her atrial fibrillation. She is on cefepime and doxycycline for pneumonia and on acyclovir for her herpes. I would keep her in the IMCU for the time being, as she continues to be quite tenuous and I think we will need several more days of acute care. Job ID: [id number]
[2018-09-01] MEDS: Acetaminophen 325 MG TAB PO PRN ×2 (12:31→20:32)
--- NOTE | 2018-09-01 17:19 | PDOC.CTH ---
Cardiology Progress Note - Subjective No new issues. Abdominal pain slowly improving. - Objective Vital Signs Temp Pulse Resp BP Pulse Ox 09/01/18 15:22 99.0 F 122 H 17 136/99 H 97 09/01/18 13:25 97 21 H 99 09/01/18 10:50 99.2 F 90 16 158/88 H 09/01/18 08:04 100 09/01/18 07:47 99 09/01/18 07:44 129 H 21 H 99 09/01/18 07:28 97.8 F 86 18 114/70 99 Weight 226 lb 9.28 oz 08/31/18 09/01/18 09/02/18 06:59 06:59 06:59 Intake Total 2340 1330 Output Total 1500 1700 Balance 840 -370 - Physical Examination General/Neuro: alert & oriented x3, NAD Neck: no JVD present Lungs: CTA, unlabored respirations Heart: RRR Abdomen: NT/ND Extremities: + edema B (1+) - Telemetry Telemetry Rhythm: Afib HR 90-110 - Labs Result Diagrams: 09/01/18 05:18 09/01/18 05:18 Troponin/CKMB CK-MB (CK-2) 2.5 ng/mL (0-6.6) 08/27/18 19:40 Troponin I 0.048 ng/mL (< 0.028) H 08/27/18 19:40 - Assessment/Plan 1. Afib RVR, rate control. 2. Multilobar pneumonia 3. Hx of afib and aflutter ablation. 4. Hx of GI Bleeding while on xarelto and plavix. 5. Anxiety. 6. TREOVR on CKD stage 4. 7. Large rectus sheath hematoma. 8. Acute blood loss Anemia PLAn: - Continue rate control with CCB and BB. - No anticoagulation due to hematoma. - Will follow.
--- NOTE | 2018-09-01 17:35 | PDOC.PN ---
- Subjective Encounter Start Date: 09/01/18 Encounter Start Time: 09:00 Pt seen for followup re: pneumonia. Feels slightly better. Cough++, sputum ++ . No fevers. feels weak. - Objective Resuscitation Status - Order Detail: 08/27/18 21:44 Resuscitation Status Routine Resuscitation Status: FULL: Full Resuscitation MAR Reviewed: Yes Vital Signs & Weight: Vital Signs (12 hours) Temp Pulse Resp BP Pulse Ox 09/01/18 15:22 99.0 F 122 H 17 136/99 H 97 09/01/18 13:25 97 21 H 99 09/01/18 10:50 99.2 F 90 16 158/88 H 09/01/18 08:04 100 09/01/18 07:47 99 09/01/18 07:44 129 H 21 H 99 09/01/18 07:28 97.8 F 86 18 114/70 99 Weight Weight 226 lb 9.28 oz I&O: 08/31/18 09/01/18 09/02/18 06:59 06:59 06:59 Intake Total 2340 1330 Output Total 1500 1700 Balance 840 -370 Result Diagrams: 09/01/18 05:18 09/02/18 04:59 Additional Labs: Accuchecks 09/01/18 09/01/18 09/01/18 16:28 10:26 05:34 POC Glucose 177 H 200 H 214 H 08/31/18 20:05 POC Glucose 355 H EKG Reviewed by me: Yes (Tele: lee gamino) Phys Exam - Physical Examination Constitutional: NAD HEENT: moist MMs Neck: supple Tra crackles Cardiovascular: irregular Gastrointestinal: soft Neurological: moves all 4 limbs Psychiatric: normal affect Dx/Plan (1) Pneumonia Code(s): J18.9 - PNEUMONIA, UNSPECIFIED ORGANISM Status: Acute Comment: continue IV cefepime, doxycycline (2) Rectus sheath hematoma Code(s): S30.1XXA - CONTUSION OF ABDOMINAL WALL, INITIAL ENCOUNTER Status: Acute Comment: Hemoglobin stable. (3) Herpes labialis Code(s): B00.1 - HERPESVIRAL VESICULAR DERMATITIS Status: Acute Comment: continue acyclovir (4) Atrial fibrillation with RVR Code(s): I48.91 - UNSPECIFIED ATRIAL FIBRILLATION Status: Acute Comment: rate-controlled now with oral cardizem (5) HTN (hypertension) Code(s): I10 - ESSENTIAL (PRIMARY) HYPERTENSION Status: Chronic Qualifiers: Hypertension type: essential hypertension Qualified Code(s): I10 - Essential (primary) hypertension Comment: controlled (6) DM2 (diabetes mellitus, type 2) Status: Chronic Comment: sugars still high, change to aggressive sliding scale - Plan * . Pt reported recent coffee-ground emesis to EP service, will consult GI for opinion since she may need anticoagulation long-term. Review of Systems - Review of Systems Cardiovascular: negative: chest pain, palpitations, orthopnea, paroxysmal nocturnal dyspnea, edema, light headedness Gastrointestinal: negative: Nausea, Vomiting, Abdominal Pain, Diarrhea, Constipation, Melena, Hematochezia - Medications/Allergies Allergies/Adverse Reactions: Allergies Allergy/AdvReac Type Severity Reaction Status Date / Time lisinopril Allergy Verified 08/28/18 01:09 Penicillins Allergy Verified 08/28/18 01:09 Medications: Current Medications Acetaminophen (Tylenol) 650 mg PO Q4H PRN PRN Reason: Headache/Fever/Mild Pain (1-3) Last Admin: 09/01/18 12:31 Dose: 650 mg Acetaminophen (Tylenol) 650 mg UT Q4H PRN PRN Reason: Headache/Fever/Mild Pain (1-3) Acyclovir (Zovirax) 400 mg PO TID [facility] Stop: 09/05/18 21:01 Last Admin: 09/01/18 15:11 Dose: 400 mg Albuterol/Ipratropium (Duoneb) 3 ml NEB [id number] [facility] Last Admin: 09/01/18 13:25 Dose: 3 ml Atorvastatin Calcium (Lipitor) 10 mg PO HS [facility] Last Admin: 08/31/18 20:33 Dose: 10 mg Cholecalciferol (Vitamin D3) 2,000 units PO DAILY [facility] Last Admin: 09/01/18 09:10 Dose: 2,000 units Dextrose/Water (Dextrose 50%) 25 gm SLOW IVP PRN PRN PRN Reason: Hypoglycemia Diltiazem HCl (Cardizem) 90 mg PO Q6HR [facility] Last Admin: 09/01/18 12:06 Dose: 90 mg Doxycycline Hyclate (Vibramycin) 100 mg PO BID [facility] Last Admin: 09/01/18 09:09 Dose: 100 mg Famotidine (Pepcid) 20 mg PO Q12HR [facility] Last Admin: 09/01/18 09:10 Dose: 20 mg Glucagon (Glucagon) 1 mg IM PRN PRN PRN Reason: Hypoglycemia Guaifenesin/Dextromethorphan (Robitussin Dm) 10 ml PO Q4H PRN PRN Reason: Cough Last Admin: 08/28/18 03:02 Dose: 10 ml Dextrose/Water (D5w) 1,000 mls @ 0 mls/hr IV .Q0M PRN PRN Reason: Hypoglycemia Cefepime HCl 1 gm/ Sodium (Chloride) 100 mls @ 200 mls/hr IVPB Q12HR [facility] Last Admin: 09/01/18 09:12 Dose: 100 mls Insulin Glargine 25 units/ (Miscellaneous Medication) 0.25 mls @ 0 mls/hr SC HS [facility] Last Admin: 08/31/18 20:39 Dose: 0.25 mls Diltiazem HCl 125 mg/Miscellaneous Medication 1 each/ Sodium Chloride 125 mls @ 2.5 mls/hr IVPB INF [facility]; Protocol Insulin Human Lispro (Humalog) 0 units SC .MODERATE SLIDING SC PRN PRN Reason: Moderate Correctional Scale Last Admin: 09/01/18 12:06 Dose: 4 unit Methylprednisolone Sodium Succinate (Solu-Medrol) 40 mg IVP DAILY [facility] Stop: 09/03/18 09:01 Last Admin: 09/01/18 09:12 Dose: 40 mg Metoprolol Tartrate (Lopressor) 25 mg PO BID [facility] Mometasone Furoate/Formoterol Fumar (Dulera 200 Mcg/5 Mcg Inhaler) 2 puff INH BID-RT [facility] Last Admin: 09/01/18 07:47 Dose: 2 puff Pantoprazole Sodium (Protonix) 40 mg PO BID [facility] Last Admin: 09/01/18 09:10 Dose: 40 mg Sodium Chloride (Flush - Normal Saline) 10 ml IVF Q12HR [facility] Last Admin: 09/01/18 09:12 Dose: 10 ml Sodium Chloride (Flush - Normal Saline) 10 ml IVF PRN PRN PRN Reason: Saline Flush Zolpidem Tartrate (Ambien) 5 mg PO HSPRN PRN PRN Reason: Insomnia Last Admin: 08/31/18 23:42 Dose: 5 mg
[2018-09-01] MEDS ORDERED: HumaLOG 300 UNITS/3 ML VIAL SC PRN (17:36)
[2018-09-01] MEDS: Atorvastatin Calcium 20 MG TAB PO SCH (20:32)
[2018-09-01] MEDS: Insulin Glargine 25 UNITS in Pre-Filled Syringe 1 EACH SC SCH (20:35)
[2018-09-01 23:08] LABS: Mycoplasma pneumoniae IgG AB 244 U/mL (0-99); Mycoplasma pneumoniae IgM AB Less than 770 U/mL (0-769)
[2018-09-02] MEDS: Acetaminophen 325 MG TAB PO PRN ×4 (00:27→20:10)
[2018-09-02 05:24] LABS: Anion Gap 11 mmol/L (10-20); BUN (Urea Nitrogen) 55 mg/dL (9.8-20.1); Calc. Creatinine Clearance 50 mL/min (70-130); Calcium 8.1 mg/dL (7.8-10.44); Carbon Dioxide 20 mmol/L (23-31); Chloride 111 mmol/L (98-107); Estimated GFR-MDRD 32; Glucose 185 mg/dL (83-110); Potassium 5.1 mmol/L (3.5-5.1); Sodium 137 mmol/L (136-145)
[2018-09-02] MEDS: Mometasone/Formoterol 120 PUFF INHALER INH SCH ×2 (08:01→19:39)
[2018-09-02] MEDS: Famotidine 20 MG TAB PO SCH ×2 (09:27→20:12)
[2018-09-02] MEDS: Acyclovir 400 mg Tablet PO SCH ×3 (09:27→20:12)
[2018-09-02] MEDS: Doxycycline 100 MG CAP PO SCH ×2 (09:27→20:10)
[2018-09-02] MEDS: Cefepime 1 GM in Sodium Chloride 0.9% 100 ML IVPB SCH (09:27)
[2018-09-02] MEDS: Metoprolol Tartrate 25 MG TAB PO SCH ×2 (09:28→20:11)
[2018-09-02] MEDS ORDERED: Metoprolol Tartrate 25 MG TAB PO SCH ×2 (11:28→12:15)
--- NOTE | 2018-09-02 11:28 | PDOC.CTH ---
Cardiology Progress Note - Subjective Minimal improvement. Still coughing but now able to get some sputum out. Still has abdominal pain with cough. - Objective Vital Signs Temp Pulse Resp BP Pulse Ox 09/02/18 10:59 98.6 F 118 H 17 149/74 H 96 09/02/18 08:28 98 09/02/18 08:02 99 09/02/18 08:00 95 22 H 99 09/02/18 07:27 98.4 F 91 20 159/63 H 97 09/02/18 03:59 98.1 F 104 H 18 156/90 H 98 09/02/18 00:00 98.4 F 88 20 142/54 H 97 Weight 226 lb 9.28 oz 09/01/18 09/02/18 09/03/18 06:59 06:59 06:59 Intake Total 1330 1668 Output Total 1700 875 Balance -370 793 - Physical Examination General/Neuro: alert & oriented x3, NAD Neck: no JVD present Lungs: CTA, unlabored respirations Heart: other: (Irregular) Abdomen: NT/ND Extremities: + edema B (Trace) - Telemetry Telemetry Rhythm: Afib HR 90-110 - Labs Result Diagrams: 09/01/18 05:18 09/02/18 04:59 Troponin/CKMB CK-MB (CK-2) 2.5 ng/mL (0-6.6) 08/27/18 19:40 Troponin I 0.048 ng/mL (< 0.028) H 08/27/18 19:40 - Assessment/Plan 1. Afib RVR, rate control. 2. Multilobar pneumonia 3. Hx of afib and aflutter ablation. 4. Hx of GI Bleeding while on xarelto and plavix. 5. Anxiety. 6. TREVOR on CKD stage 4. 7. Large rectus sheath hematoma. 8. Acute blood loss Anemia PLAn: - Continue rate control with CCB and BB. - Will increase BB. - No anticoagulation due to hematoma. - Will follow.
--- NOTE | 2018-09-02 11:53 | RAD ---
CHEST 1 VIEW: HISTORY: Pneumonia. Followup. COMPARISON: 08/28/2018. FINDINGS: Cardiac silhouette is magnified by projection. Pulmonary vasculature is slightly engorged. The ronnie ent is slightly rotated leftward. Mild patchy bilateral perihilar and right infrahilar infiltrates. Focal infiltrate in the left upper lobe is more diffuse than on the prior study. The tip of a left upper extremity PICC overlies the superior vena cava. IMPRESSION: 1. Mild pulmonary vascular congestion. 2. Partial resolution left upper lobe infiltrate. POS: [facility]
--- NOTE | 2018-09-02 12:24 | PRG ---
DATE OF SERVICE: 09/02/2018 SUBJECTIVE: She is still coughing, appears relatively clear. OBJECTIVE: VITAL SIGNS: Saturations are 96% on room air, respirations 17, temperature 98, pulse 118, blood pressure 149/74. CHEST: Decreased breath sounds. No wheezing. CARDIAC: Normal S1, S2. No gallops. ABDOMEN: No masses. LABORATORY DATA: Glucose 195, creatinine 1.6. IMPRESSION: 1. Bronchitis. 2. Azotemia. 3. Atrial fibrillation. PLAN: Baseline chest x-ray being ordered. Continue p.o. doxycycline, Symbicort neb treatments. Low-dose steroids. Job ID: [id number]
--- NOTE | 2018-09-02 13:03 | PRG ---
DATE OF SERVICE: 09/02/2018 SUBJECTIVE: A 73-year-old lady being seen for acute kidney injury. The patient denies nausea, vomiting, or chest pain. OBJECTIVE: CONSTITUTIONAL: The patient is awake and alert. VITAL SIGNS: Afebrile, pulse 118, breathing 16, blood pressure 149/74. GENERAL APPEARANCE AND MENTAL STATUS: Fair. HEAD/NECK: Normocephalic. Atraumatic. EYES: EOMI. No deformity. EARS: Clear. No ulcers. NOSE: Intact. No lesions. MOUTH: Clear. No discharge. THROAT: Clear. No exudate. LUNGS: Clear. No crackles. CARDIAC: S1, S2. No rub. ABDOMEN: Benign. Bowel sounds positive. GENITALIA/RECTUM: Iniguez absent. BACK/EXTREMITIES: Edema 0+. NEUROLOGICAL: Alert and motor intact. LABORATORY DATA: Creatinine 1.6. ASSESSMENT: 1. Stage 3 chronic kidney disease, stable. 2. Hypertension, stable. 3. Anemia, stable. 4. Hyperkalemia, stable. 5. Medications based on glomerular filtration rate appropriate. Job ID: [id number]
[2018-09-02] MEDS: Benzonatate 100 MG CAP PO SCH ×2 (16:16→20:12)
--- NOTE | 2018-09-02 16:24 | PDOC.PN ---
- Subjective Encounter Start Date: 09/02/18 Encounter Start Time: 09:40 Pt seen for followup re: pneumonia. Feels slightly better. Cough+, sputum+. - Objective Resuscitation Status - Order Detail: 08/27/18 21:44 Resuscitation Status Routine Resuscitation Status: FULL: Full Resuscitation MAR Reviewed: Yes Vital Signs & Weight: Vital Signs (12 hours) Temp Pulse Pulse Pulse Resp BP BP 09/02/18 15:25 98.8 F 16 09/02/18 13:50 120 H 115 H 165/90 H 154/90 H 09/02/18 13:10 88 18 09/02/18 10:59 98.6 F 118 H 17 09/02/18 08:28 09/02/18 08:02 09/02/18 08:00 95 22 H 09/02/18 07:27 98.4 F 91 20 BP Pulse Ox Pulse Ox Pulse Ox Pulse Ox 09/02/18 15:25 154/90 H 09/02/18 13:50 98 99 97 09/02/18 13:10 09/02/18 10:59 149/74 H 96 09/02/18 08:28 98 09/02/18 08:02 99 09/02/18 08:00 99 09/02/18 07:27 159/63 H 97 Weight Weight 226 lb 9.28 oz I&O: 09/01/18 09/02/18 09/03/18 06:59 06:59 06:59 Intake Total 1330 1668 Output Total 1700 875 Balance -370 793 Result Diagrams: 09/01/18 05:18 09/02/18 04:59 Additional Labs: Accuchecks 09/02/18 09/02/18 09/01/18 10:26 05:32 19:58 POC Glucose 131 H 176 H 276 H 09/01/18 16:28 POC Glucose 177 H EKG Reviewed by me: Yes (Tele: lee gamino) Phys Exam - Physical Examination Obese HEENT: moist MMs Neck: supple Respiratory: wheezing present Cardiovascular: irregular Gastrointestinal: soft Neurological: moves all 4 limbs Psychiatric: normal affect Dx/Plan (1) Pneumonia Code(s): J18.9 - PNEUMONIA, UNSPECIFIED ORGANISM Status: Acute Comment: on IV cefepime, doxycycline (2) Rectus sheath hematoma Code(s): S30.1XXA - CONTUSION OF ABDOMINAL WALL, INITIAL ENCOUNTER Status: Acute Comment: stable (3) Herpes labialis Code(s): B00.1 - HERPESVIRAL VESICULAR DERMATITIS Status: Acute Comment: on acyclovir (4) Atrial fibrillation with RVR Code(s): I48.91 - UNSPECIFIED ATRIAL FIBRILLATION Status: Acute Comment: rate-controlled (5) HTN (hypertension) Code(s): I10 - ESSENTIAL (PRIMARY) HYPERTENSION Status: Chronic Qualifiers: Hypertension type: essential hypertension Qualified Code(s): I10 - Essential (primary) hypertension Comment: controlled (6) DM2 (diabetes mellitus, type 2) Status: Chronic Comment: on aggressive sliding scale - Plan * . Review of Systems - Review of Systems Respiratory: Cough, Sputum. negative: Dry, Shortness of Breath, Hemoptysis, SOB with Excertion, Pleuritic Pain, Wheezing Cardiovascular: negative: chest pain, palpitations, orthopnea, paroxysmal nocturnal dyspnea, edema, light headedness - Medications/Allergies Allergies/Adverse Reactions: Allergies Allergy/AdvReac Type Severity Reaction Status Date / Time lisinopril Allergy Verified 08/28/18 01:09 Penicillins Allergy Verified 08/28/18 01:09 Medications: Current Medications Acetaminophen (Tylenol) 650 mg PO Q4H PRN PRN Reason: Headache/Fever/Mild Pain (1-3) Last Admin: 09/02/18 09:34 Dose: 650 mg Acetaminophen (Tylenol) 650 mg [place] Q4H PRN PRN Reason: Headache/Fever/Mild Pain (1-3) Acyclovir (Zovirax) 400 mg PO TID [facility] Stop: 09/05/18 21:01 Last Admin: 09/02/18 16:16 Dose: 400 mg Albuterol/Ipratropium (Duoneb) 3 ml NEB [id number] [facility] Last Admin: 09/02/18 13:10 Dose: 3 ml Atorvastatin Calcium (Lipitor) 10 mg PO HS [facility] Last Admin: 09/01/18 20:32 Dose: 10 mg Benzonatate (Tessalon) 100 mg PO TID [facility] Stop: 09/05/18 15:01 Last Admin: 09/02/18 16:16 Dose: 100 mg Cholecalciferol (Vitamin D3) 2,000 units PO DAILY [facility] Last Admin: 09/02/18 09:27 Dose: 2,000 units Dextrose/Water (Dextrose 50%) 25 gm SLOW IVP PRN PRN PRN Reason: Hypoglycemia Diltiazem HCl (Cardizem) 90 mg PO Q6HR [facility] Last Admin: 09/02/18 13:29 Dose: 90 mg Doxycycline Hyclate (Vibramycin) 100 mg PO BID [facility] Last Admin: 09/02/18 09:27 Dose: 100 mg Famotidine (Pepcid) 20 mg PO Q12HR [facility] Last Admin: 09/02/18 09:27 Dose: 20 mg Glucagon (Glucagon) 1 mg IM PRN PRN PRN Reason: Hypoglycemia Guaifenesin/Dextromethorphan (Robitussin Dm) 10 ml PO Q4H PRN PRN Reason: Cough Last Admin: 08/28/18 03:02 Dose: 10 ml Dextrose/Water (D5w) 1,000 mls @ 0 mls/hr IV .Q0M PRN PRN Reason: Hypoglycemia Insulin Glargine 25 units/ (Miscellaneous Medication) 0.25 mls @ 0 mls/hr SC [facility] Last Admin: 09/01/18 20:35 Dose: 0.25 mls Diltiazem HCl 125 mg/Miscellaneous Medication 1 each/ Sodium Chloride 125 mls @ 2.5 mls/hr IVPB INF [facility]; Protocol Insulin Human Lispro (Humalog) 0 units SC .AGGRESSIVE SLIDING PRN PRN Reason: Aggressive Correctional Scale Last Admin: 09/02/18 05:45 Dose: 3 unit Insulin Human Lispro (Humalog) 0 units SC .BEDTIME SLIDING SC PRN PRN Reason: Bedtime Correctional Scale Last Admin: 09/01/18 20:35 Dose: 3 unit Methylprednisolone Sodium Succinate (Solu-Medrol) 40 mg IVP DAILY [facility] Stop: 09/03/18 09:01 Last Admin: 09/02/18 09:27 Dose: 40 mg Metoprolol Tartrate (Lopressor) 50 mg PO BID [facility] Mometasone Furoate/Formoterol Fumar (Dulera 200 Mcg/5 Mcg Inhaler) 2 puff INH BID-RT [facility] Last Admin: 09/02/18 08:01 Dose: 2 puff Pantoprazole Sodium (Protonix) 40 mg PO BID [facility] Last Admin: 09/02/18 09:27 Dose: 40 mg Prednisone (Prednisone) 20 mg PO QAM-WM SD Sodium Chloride (Flush - Normal Saline) 10 ml IVF Q12HR [facility] Last Admin: 09/02/18 09:27 Dose: 10 ml Sodium Chloride (Flush - Normal Saline) 10 ml IVF PRN PRN PRN Reason: Saline Flush Zolpidem Tartrate (Ambien) 5 mg PO HSPRN PRN PRN Reason: Insomnia Last Admin: 08/31/18 23:42 Dose: 5 mg
[2018-09-02] MEDS: Atorvastatin Calcium 20 MG TAB PO SCH (20:11)
[2018-09-02] MEDS: Insulin Glargine 25 UNITS in Pre-Filled Syringe 1 EACH SC SCH (22:09)
[2018-09-02] MEDS: HumaLOG 300 UNITS/3 ML VIAL SC PRN (22:10)
[2018-09-03] MEDS: Acetaminophen 325 MG TAB PO PRN ×3 (01:14→09:11)
[2018-09-03] MEDS: Mometasone/Formoterol 120 PUFF INHALER INH SCH ×2 (07:04→19:27)
[2018-09-03] MEDS: Famotidine 20 MG TAB PO SCH ×2 (09:12→22:05)
[2018-09-03] MEDS: Doxycycline 100 MG CAP PO SCH ×2 (09:12→22:03)
[2018-09-03] MEDS: Metoprolol Tartrate 25 MG TAB PO SCH ×2 (09:12→22:05)
[2018-09-03] MEDS: Benzonatate 100 MG CAP PO SCH ×3 (09:12→22:07)
[2018-09-03] MEDS: predniSONE 20 MG TAB PO SCH (09:12)
[2018-09-03] MEDS: Acyclovir 400 mg Tablet PO SCH ×3 (09:13→22:12)
--- NOTE | 2018-09-03 09:26 | PRG ---
DATE OF SERVICE: 09/03/2018 SUBJECTIVE: This morning, she is better, less cough, less shortness of breath. OBJECTIVE: VITAL SIGNS: Sats 97% on room air, respirations 16, temperature 98, pulse 77, and blood pressure 130/66. CHEST: Decreased breath sounds. No wheezing. CARDIAC: Normal, S1 and S2. No gallops. ABDOMEN: No masses. IMPRESSION: 1. Bronchitis. 2. Questionable pneumonia, much improved. 3. Renal failure. 4. Diabetes. PLAN: Pulmonary-jones, once her cardiac status improves, she could be transferred back to primary care physician. Job ID: [id number]
[2018-09-03 10:49] LABS: #Lymphocytes 0.5 thou/uL (1.20-3.40); #Monocytes 0.6 thou/uL (0.11-0.59); #Neutrophils 9.4 thou/uL (1.40-6.50); %Basophils 0.2 % (0.0-1.0); %Eosinophils 0.2 % (0.0-10.0); %Lymphocytes 5.1 % (21.0-51.0); %Monocytes 5.6 % (0.0-10.0); %Neutrophils 88.9 % (42.0-75.0); Hemoglobin 10.6 g/dL (12.0-16.0); Mean Corpuscular HGB CONC 33.5 g/dL (32.0-36.0); Mean Corpuscular Hemoglobin 32.3 pg (27.0-31.0); Mean Corpuscular Volume 96.4 fL (78.0-98.0); Mean Platelet Volume 7.9 fL (7.4-10.4); Platelet Count 215 thou/uL (130-400); RBC Distribution Width 13.4 % (11.5-14.5); Red Blood Cell (RBC) Count 3.29 mill/uL (4.20-5.40); White Blood Cell (WBC) Count 10.5 thou/uL (4.8-10.8)
[2018-09-03 11:06] LABS: Anion Gap 12 mmol/L (10-20); BUN (Urea Nitrogen) 46 mg/dL (9.8-20.1); Calc. Creatinine Clearance 56 mL/min (70-130); Calcium 8.4 mg/dL (7.8-10.44); Carbon Dioxide 18 mmol/L (23-31); Chloride 111 mmol/L (98-107); Estimated GFR-MDRD 35; Glucose 199 mg/dL (83-110); Potassium 4.9 mmol/L (3.5-5.1); Sodium 136 mmol/L (136-145)
--- NOTE | 2018-09-03 11:26 | PDOC.CTH ---
Cardiology Progress Note - Subjective Ep follow up 09/03/18 She is feeling better, less dyspnic. No SOB, No LOC. COncenrened about bfrequent blood draws. - Objective Vital Signs Temp Pulse Resp BP BP BP Pulse Ox 09/03/18 09:15 96 09/03/18 07:35 97.8 F 77 16 139/66 96 09/03/18 07:04 67 16 100 09/03/18 07:00 67 16 100 09/03/18 04:00 97.5 F L 71 20 172/97 H 98 09/03/18 01:05 116 H 18 98 09/03/18 00:00 97.9 F 81 14 125/79 98 Weight 232 lb 14.4 oz 09/02/18 09/03/18 09/04/18 06:59 06:59 06:59 Intake Total 1668 620 Output Total 875 Balance 793 620 - Labs Result Diagrams: 09/03/18 10:36 09/03/18 10:36 Troponin/CKMB CK-MB (CK-2) 2.5 ng/mL (0-6.6) 08/27/18 19:40 Troponin I 0.048 ng/mL (< 0.028) H 08/27/18 19:40 - Assessment/Plan 1. Atrial fibrillation -remains in AF today -RVR controlled. on diltiazem gtt at 2.5mg/hr. Started on PO Dilt 90 QID. On Metoprolol tartarate 25mg BID. Rates well controlled. 2. Anemia -h/o esophageal bleed and rectus sheath hematoma. -reports recent coffee ground emesis (last saturday). 3. Community acquired pneumonia -anbx, steroid, and nebs -per pulm. 4. CHADS2-VASC: 5 -continue lovenox 100mg SQ QD 5. Abd pain -extensive bruising -pain with coughing -CT abdomen pos for rectal sheath hematoma. - OAC on hold. 6. 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 Resume OAC when clinically feasible for CVA prophylaxis. Continue rate control for now. Once medically more stable -likely as outpatient-can plan for HUMA/CV then start Multaq 400mg PO BID and start OAC if no further bleeding issues are seen. Further investigation into coffee ground emesis may be reasonable to help clear her for anticoagulation.She has had this in the past but was on Xarelto and plavix at that time. She remains on plavix 37.5 PO BID. senior living we are considering her for a watchman but she will require oral anticoagulation for at least 2.5 months during workup and following protocol post Watchman implant. Will arrange outpt follow up.
--- NOTE | 2018-09-03 11:29 | PRG ---
DATE OF SERVICE: 09/03/2018 SUBJECTIVE: A 73-year-old female being seen for acute kidney injury. The patient denied any nausea, vomiting, or chest pain. OBJECTIVE: CONSTITUTIONAL: On examination, the patient is awake and alert. VITAL SIGNS: Afebrile, pulse 77, breathing is 16, and blood pressure 139/66. GENERAL APPEARANCE AND MENTAL STATUS: Fair. HEAD/NECK: Normocephalic. Atraumatic. EYES: EOMI. No deformity. EARS: Clear. No ulcers. NOSE: Intact. No lesions. MOUTH: Clear. No discharge. THROAT: Clear. No exudate. LUNGS: Clear. No crackles. CARDIAC: S1, S2. No rub. ABDOMEN: Benign. Bowel sounds positive. GENITALIA/RECTUM: Iniguez absent. BACK/EXTREMITIES: Edema 0+. NEUROLOGICAL: Alert and motor intact. LABORATORY DATA: Labs show hemoglobin 10.6. Creatinine 1.4. ASSESSMENT AND PLAN: 1. Acute kidney injury, improved. 2. Metabolic acidosis. Give sodium bicarbonate. 3. Hypertension, stable. 4. Hyperkalemia, stable. 5. I will sign off on this patient. Please reconsult as needed. Job ID: [id number]
--- NOTE | 2018-09-03 14:32 | PDOC.PN ---
- Subjective Encounter Start Date: 09/03/18 Encounter Start Time: 09:40 Pt seen for followup re: pneumonia. feels better. - Objective Resuscitation Status - Order Detail: 08/27/18 21:44 Resuscitation Status Routine Resuscitation Status: FULL: Full Resuscitation MAR Reviewed: Yes Vital Signs & Weight: Vital Signs (12 hours) Temp Pulse Resp BP BP Pulse Ox 09/03/18 12:31 98.0 F 104 H 16 139/83 95 09/03/18 09:15 96 09/03/18 07:35 97.8 F 77 16 139/66 96 09/03/18 07:04 67 16 100 09/03/18 07:00 67 16 100 09/03/18 04:00 97.5 F L 71 20 172/97 H 98 Weight Weight 232 lb 14.4 oz I&O: 09/02/18 09/03/18 09/04/18 06:59 06:59 06:59 Intake Total 1668 620 Output Total 875 Balance 793 620 Result Diagrams: 09/03/18 10:36 09/03/18 10:36 Additional Labs: Accuchecks 09/03/18 09/03/18 09/02/18 11:08 05:22 20:29 POC Glucose 176 H 180 H 221 H 09/02/18 16:16 POC Glucose 176 H EKG Reviewed by me: Yes (Tele: lee gamino) Phys Exam - Physical Examination Constitutional: NAD HEENT: moist MMs Neck: supple Respiratory: clear to auscultation bilateral Cardiovascular: irregular Gastrointestinal: soft Neurological: moves all 4 limbs Psychiatric: normal affect Dx/Plan (1) Pneumonia Code(s): J18.9 - PNEUMONIA, UNSPECIFIED ORGANISM Status: Acute Comment: on doxycycline (2) Rectus sheath hematoma Code(s): S30.1XXA - CONTUSION OF ABDOMINAL WALL, INITIAL ENCOUNTER Status: Acute Comment: stable (3) Herpes labialis Code(s): B00.1 - HERPESVIRAL VESICULAR DERMATITIS Status: Acute Comment: continue acyclovir (4) Atrial fibrillation with RVR Code(s): I48.91 - UNSPECIFIED ATRIAL FIBRILLATION Status: Acute Comment: rate-controlled (5) HTN (hypertension) Code(s): I10 - ESSENTIAL (PRIMARY) HYPERTENSION Status: Chronic Qualifiers: Hypertension type: essential hypertension Qualified Code(s): I10 - Essential (primary) hypertension Comment: controlled (6) DM2 (diabetes mellitus, type 2) Status: Chronic Comment: continue aggressive sliding scale - Plan * . Review of Systems - Review of Systems Respiratory: Cough, Sputum. negative: Dry, Shortness of Breath, Hemoptysis, SOB with Excertion, Pleuritic Pain, Wheezing Cardiovascular: negative: chest pain, palpitations, orthopnea, paroxysmal nocturnal dyspnea, edema, light headedness - Medications/Allergies Allergies/Adverse Reactions: Allergies Allergy/AdvReac Type Severity Reaction Status Date / Time lisinopril Allergy Verified 08/28/18 01:09 Penicillins Allergy Verified 08/28/18 01:09 Medications: Current Medications Acetaminophen (Tylenol) 650 mg PO Q4H PRN PRN Reason: Headache/Fever/Mild Pain (1-3) Last Admin: 09/03/18 09:11 Dose: 650 mg Acetaminophen (Tylenol) 650 mg MO Q4H PRN PRN Reason: Headache/Fever/Mild Pain (1-3) Acyclovir (Zovirax) 400 mg PO TID [facility] Stop: 09/05/18 21:01 Last Admin: 09/03/18 09:13 Dose: 400 mg Albuterol/Ipratropium (Duoneb) 3 ml NEB [id number] [facility] Last Admin: 09/03/18 12:13 Dose: Not Given Atorvastatin Calcium (Lipitor) 10 mg PO HS [facility] Last Admin: 09/02/18 20:11 Dose: 10 mg Benzonatate (Tessalon) 100 mg PO TID [facility] Stop: 09/05/18 15:01 Last Admin: 09/03/18 09:12 Dose: 100 mg Cholecalciferol (Vitamin D3) 2,000 units PO DAILY [facility] Last Admin: 09/03/18 09:11 Dose: 2,000 units Dextrose/Water (Dextrose 50%) 25 gm SLOW IVP PRN PRN PRN Reason: Hypoglycemia Diltiazem HCl (Cardizem) 90 mg PO Q6HR [facility] Last Admin: 09/03/18 12:29 Dose: 90 mg Doxycycline Hyclate (Vibramycin) 100 mg PO BID [facility] Last Admin: 09/03/18 09:12 Dose: 100 mg Famotidine (Pepcid) 20 mg PO Q12HR [facility] Last Admin: 09/03/18 09:12 Dose: 20 mg Glucagon (Glucagon) 1 mg IM PRN PRN PRN Reason: Hypoglycemia Guaifenesin/Dextromethorphan (Robitussin Dm) 10 ml PO Q4H PRN PRN Reason: Cough Last Admin: 08/28/18 03:02 Dose: 10 ml Dextrose/Water (D5w) 1,000 mls @ 0 mls/hr IV .Q0M PRN PRN Reason: Hypoglycemia Insulin Glargine 25 units/ (Miscellaneous Medication) 0.25 mls @ 0 mls/hr SC HS [facility] Last Admin: 09/02/18 22:09 Dose: 0.25 mls Diltiazem HCl 125 mg/Miscellaneous Medication 1 each/ Sodium Chloride 125 mls @ 2.5 mls/hr IVPB INF SD; Protocol Insulin Human Lispro (Humalog) 0 units SC .AGGRESSIVE SLIDING PRN PRN Reason: Aggressive Correctional Scale Last Admin: 09/02/18 05:45 Dose: 3 unit Insulin Human Lispro (Humalog) 0 units SC .BEDTIME SLIDING SC PRN PRN Reason: Bedtime Correctional Scale Last Admin: 09/02/18 22:10 Dose: 2 unit Metoprolol Tartrate (Lopressor) 50 mg PO BID [facility] Last Admin: 09/03/18 09:12 Dose: 50 mg Mometasone Furoate/Formoterol Fumar (Dulera 200 Mcg/5 Mcg Inhaler) 2 puff INH BID-RT [facility] Last Admin: 09/03/18 07:04 Dose: 2 puff Pantoprazole Sodium (Protonix) 40 mg PO BID [facility] Last Admin: 09/03/18 09:12 Dose: 40 mg Prednisone (Prednisone) 20 mg PO QAM-WM [facility] Last Admin: 09/03/18 09:12 Dose: 20 mg Sodium Chloride (Flush - Normal Saline) 10 ml IVF Q12HR [facility] Last Admin: 09/03/18 09:14 Dose: 10 ml Sodium Chloride (Flush - Normal Saline) 10 ml IVF PRN PRN PRN Reason: Saline Flush Zolpidem Tartrate (Ambien) 5 mg PO HSPRN PRN PRN Reason: Insomnia Last Admin: 08/31/18 23:42 Dose: 5 mg
--- NOTE | 2018-09-03 17:38 | PDOC.CTH ---
Cardiology Progress Note - Subjective Doing better. Asking when she can go home. - Objective Vital Signs Temp Pulse Resp BP BP Pulse Ox 09/03/18 15:35 97.7 F 97 16 177/72 H 97 09/03/18 12:31 98.0 F 104 H 16 139/83 95 09/03/18 09:15 96 09/03/18 07:35 97.8 F 77 16 139/66 96 09/03/18 07:04 67 16 100 09/03/18 07:00 67 16 100 Weight 232 lb 14.4 oz 09/02/18 09/03/18 09/04/18 06:59 06:59 06:59 Intake Total 1668 620 Output Total 875 Balance 793 620 - Physical Examination General/Neuro: alert & oriented x3 Neck: no JVD present Lungs: CTA, unlabored respirations Heart: other: (Irreg) Abdomen: NT/ND Extremities: + edema B (Trace) - Telemetry Telemetry Rhythm: Afib HR 80's. - Labs Result Diagrams: 09/03/18 10:36 09/03/18 10:36 Troponin/CKMB CK-MB (CK-2) 2.5 ng/mL (0-6.6) 08/27/18 19:40 Troponin I 0.048 ng/mL (< 0.028) H 08/27/18 19:40 - Assessment/Plan 1. Afib RVR, rate control. 2. Multilobar pneumonia 3. Hx of afib and aflutter ablation. 4. Hx of GI Bleeding while on xarelto and plavix. 5. Anxiety. 6. TREVOR on CKD stage 4. 7. Large rectus sheath hematoma. 8. Acute blood loss Anemia PLAn: - Continue rate control with current oral dose of CCB and BB. - No anticoagulation due to hematoma. - Will plan on outpatient HUMA/Cardioversion. - Will need GI work up prior to any oral anticoagulation due to coffee grounds prior to admission.
[2018-09-03] MEDS: Atorvastatin Calcium 20 MG TAB PO SCH (22:04)
[2018-09-03] MEDS: Insulin Glargine 25 UNITS in Pre-Filled Syringe 1 EACH SC SCH (22:06)
[2018-09-03] MEDS: guaiFENesin ER 600 MG TAB PO SCH (22:46)
[2018-09-04 06:01] LABS: #Lymphocytes 0.6 thou/uL (1.20-3.40); #Monocytes 0.5 thou/uL (0.11-0.59); #Neutrophils 9.8 thou/uL (1.40-6.50); %Eosinophils 0.2 % (0.0-10.0); %Lymphocytes 5.1 % (21.0-51.0); %Monocytes 4.5 % (0.0-10.0); %Neutrophils 90.2 % (42.0-75.0); Hemoglobin 10.6 g/dL (12.0-16.0); Mean Corpuscular HGB CONC 33.6 g/dL (32.0-36.0); Mean Corpuscular Hemoglobin 32.4 pg (27.0-31.0); Mean Corpuscular Volume 96.3 fL (78.0-98.0); Mean Platelet Volume 7.8 fL (7.4-10.4); Platelet Count 209 thou/uL (130-400); RBC Distribution Width 13.6 % (11.5-14.5); Red Blood Cell (RBC) Count 3.27 mill/uL (4.20-5.40); White Blood Cell (WBC) Count 10.9 thou/uL (4.8-10.8)
[2018-09-04 06:24] LABS: Anion Gap 13 mmol/L (10-20); BUN (Urea Nitrogen) 44 mg/dL (9.8-20.1); Calc. Creatinine Clearance 59 mL/min (70-130); Calcium 8.2 mg/dL (7.8-10.44); Carbon Dioxide 18 mmol/L (23-31); Chloride 110 mmol/L (98-107); Estimated GFR-MDRD 37; Glucose 223 mg/dL (83-110); Potassium 4.9 mmol/L (3.5-5.1); Sodium 136 mmol/L (136-145)
[2018-09-04] MEDS: Mometasone/Formoterol 120 PUFF INHALER INH SCH (06:26)
[2018-09-04] MEDS: Acetaminophen 325 MG TAB PO PRN (06:35)
[2018-09-04 07:58] VITALS: BP 143/65
--- NOTE | 2018-09-04 09:31 | PRG ---
DATE OF SERVICE: 09/04/2018 SUBJECTIVE: This morning, she is better, cough is still there. OBJECTIVE: VITAL SIGNS: Saturations are 98% on room air, respiratory rate 21, pulse 90, temperature 98, blood pressure 143/65. CHEST: No wheezing. CARDIAC: Normal S1 and S2. No gallops. ABDOMEN: No masses. LABORATORY DATA: Creatinine is 1.40. White count [id number]. ASSESSMENT: 1. Bronchitis, asthmatic. 2. Minimal pneumonia. PLAN: 1. She will be discharged to home on prednisone for a week, antibiotics for 5 more days, Dulera. 2. Follow up with primary care physician. Job ID: [id number]
[2018-09-04] MEDS: Metoprolol Tartrate 25 MG TAB PO SCH (10:02)
[2018-09-04] MEDS: guaiFENesin ER 600 MG TAB PO SCH (10:03)
[2018-09-04] MEDS: Famotidine 20 MG TAB PO SCH (10:03)
[2018-09-04] MEDS: Benzonatate 100 MG CAP PO SCH (10:03)
[2018-09-04] MEDS: Doxycycline 100 MG CAP PO SCH (10:03)
[2018-09-04] MEDS: predniSONE 20 MG TAB PO SCH (10:03)
[2018-09-04] MEDS: Acyclovir 400 mg Tablet PO SCH (10:03)
--- NOTE | 2018-09-04 12:37 | PRG ---
DATE OF SERVICE: 09/04/2018 SUBJECTIVE: A 73-year-old female, being seen for acute kidney injury. The patient denies any nausea, vomiting, or chest pain. OBJECTIVE: CONSTITUTIONAL: The patient is awake and alert. VITAL SIGNS: Afebrile, pulse 99, breathing is 16, and blood pressure 143/65. GENERAL APPEARANCE AND MENTAL STATUS: Fair. HEAD/NECK: Normocephalic. Atraumatic. EYES: EOMI. No deformity. EARS: Clear. No ulcers. NOSE: Intact. No lesions. MOUTH: Clear. No discharge. THROAT: Clear. No exudate. LUNGS: Clear. No crackles. CARDIAC: S1, S2. No rub. ABDOMEN: Benign. Bowel sounds positive. GENITALIA/RECTUM: Iniguez absent. BACK/EXTREMITIES: Edema 0+. NEUROLOGICAL: Alert and motor intact. SKIN: LYMPHATICS: LABORATORY DATA: Labs show hemoglobin 10.6. Creatinine 1.4. ASSESSMENT AND PLAN: 1. Acute kidney injury, stable. 2. Hypertension, stable. 3. Anemia, stable. The patient will follow up to see me in 2 weeks. Job ID: [id number]
[2018-09-04 12:45] VITALS: TEMP 98.8
--- NOTE | 2018-09-04 17:09 | PDOC.CTH ---
Cardiology Progress Note - Subjective EP follow up 09/04/18 She seem to be doing better. No new issues. - Objective Vital Signs Temp Pulse Resp BP Pulse Ox 09/04/18 12:10 98.8 F 89 18 143/65 H 95 09/04/18 08:00 98 09/04/18 07:20 98.1 F 99 21 H 143/65 H 98 09/04/18 06:26 109 H 20 97 09/04/18 06:23 109 H 20 97 Weight 234 lb 9.6 oz 09/03/18 09/04/18 09/05/18 06:59 06:59 06:59 Intake Total 620 1220 Balance 620 1220 - Physical Examination General/Neuro: alert & oriented x3, NAD Neck: no JVD present Lungs: CTA Heart: other: (irreg HR) Abdomen: no HSM, soft - Telemetry Telemetry Rhythm: afib with controlled VR - Labs Result Diagrams: 09/04/18 05:19 09/04/18 05:19 Troponin/CKMB CK-MB (CK-2) 2.5 ng/mL (0-6.6) 08/27/18 19:40 Troponin I 0.048 ng/mL (< 0.028) H 08/27/18 19:40 - Assessment/Plan 1. Atrial fibrillation -remains in AF today -RVR controlled. on diltiazem gtt at 2.5mg/hr. Started on PO Dilt 90 QID. On Metoprolol tartarate 25mg BID. Rates well controlled. 2. Anemia -h/o esophageal bleed and rectus sheath hematoma. -reports recent coffee ground emesis (last saturday). 3. Community acquired pneumonia -anbx, steroid, and nebs -per pulm. 4. CHADS2-VASC: 5 -continue lovenox 100mg SQ QD 5. Abd pain -extensive bruising -pain with coughing -CT abdomen pos for rectal sheath hematoma. - OAC on hold. 6. 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 Resume OAC when clinically feasible for CVA prophylaxis. Continue rate control for now. Once medically more stable -likely as outpatient-can plan for HUMA/CV then start Multaq 400mg PO BID and start OAC if no further bleeding issues are seen. Further investigation into coffee ground emesis may be reasonable to help clear her for anticoagulation.She has had this in the past but was on Xarelto and plavix at that time. She remains on plavix 37.5 PO BID. 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 Remains stable. ready for discharge. Will arrange outpt follow up.
--- NOTE | 2018-09-05 03:15 | DIS ---
DATE OF ADMISSION: 08/27/2018 DATE OF DISCHARGE: 09/04/2018 PRIMARY CARE PROVIDER: Dr. Glen Shepherd. DISCHARGE DIAGNOSES: 1. Severe sepsis. 2. Streptococcal pneumonia causing severe sepsis. 3. Acute kidney injury. 4. Atrial fibrillation with rapid ventricular response. 5. Large rectus sheath hematoma. 6. Acute blood loss anemia. CONDITION OF PATIENT ON THE DAY OF DISCHARGE: Stable. PHYSICAL EXAMINATION: GENERAL: I assessed Ms. Chamorro on the day of discharge. She denies any chest pain or shortness of breath. Cough is better. VITAL SIGNS: Stable. HEART: S1 and S2 are heard, irregular. LUNGS: Clear to auscultation bilaterally. CONSULTATIONS DURING THIS HOSPITALIZATION: 1. Cardiology, Dr. Ivey. 2. Electrophysiology, Dr. Rodríguez. 3. Pulmonary Critical Care Medicine, Dr. Ferguson. 4. Nephrology, Dr. Valerio. DISCHARGE MEDICATIONS: 1. 10 mg at bedtime. 2. Biotin 5000 mcg daily. 3. Black cohosh root 20 mg daily. 4. Vitamin D3 of 2000 units daily. 5. Vitamin B12 of 1000 mcg daily. 6. Levemir insulin 20-25 units at bedtime. 7. Protonix 40 mg daily. 8. Senna 8.6 mg at bedtime as needed. 9. Cardizem 90 mg every 6 hours. 10. Acyclovir 400 mg 3 times a day, 5 more doses. 11. Tessalon 100 mg 3 times a day, 6 more doses. 12. Doxycycline 100 mg 2 times a day for 5 more days. 13. Metoprolol tartrate 50 mg 2 times a day. 14. Dulera 200/5 mcg two puffs 2 times a day. 15. Prednisone taper over 1 week. HOSPITAL COURSE: Ms. Chamorro is a pleasant 73-year-old lady, who was admitted to [facility] on August 27, 2018, for community-acquired multifocal pneumonia. Please refer to Dr. Mena's history and physical note for further details. She was also in atrial fibrillation with rapid ventricular response. She was seen by Electrophysiology Service. She also had excessive bruising over the abdomen. Abdominal ultrasound on August 28 did not show any localizable focal fluid collection. She went on to have CT scan of the abdomen and pelvis on August 30, which showed large right rectus sheath hematoma, small bilateral pleural effusions and atelectasis in addition to mild reticular nodular densities in the left lung base with slight peribronchial thickening, cholelithiasis, subcutaneous nodule in the right posterior lateral flank. She was initially started on anticoagulation because of atrial fibrillation. Anticoagulation was discontinued. She also had a PICC line placed for intravenous access. She continued to gradually improve. She was transferred out of [facility] to the medical floor. For atrial fibrillation with rapid ventricular response, she was initially treated with Cardizem drip and subsequently transitioned to oral Cardizem. Cardiology Service recommends rate control with calcium channel pro and beta pro. They plan on outpatient HUMA/cardioversion. She reported coffee-ground emesis prior to admission and may need GI workup prior to any oral anticoagulation. In terms of renal function, she had acute on chronic kidney injury. Creatinine peaked to 1.73 on August 30, before improving to 1.40 on September 04, 2018. This was acute on chronic stage 3 kidney disease. Nephrology Service will follow up in a week's time. She has been cleared for discharge by all the consultants and is being discharged home in a stable condition. Many thanks for allowing me to participate in your patient's care. Please feel free to contact me with any questions or concerns. The plan for discharge was discussed with the patient and she expressed understanding. Job ID: [id number]
== END 2018-09-04 13:50 | disposition home or self-care (01) | DRG 871 ==
LOC: ERS 19:23 → IMCU/EMU 21:44 → 2NO 09-02 18:41
PROVIDERS: ADMIT Internal Medicine; ATTEND Internal Medicine
PROC: 02HV33Z Insertion of Infusion Device into Superior Vena Cava, Percutaneous Approach (ICD-10-PCS; principal; 2018-08-27)
DX: A40.9 Streptococcal sepsis, unspecified (principal); J15.20 Pneumonia due to staphylococcus, unspecified; N39.0 Urinary tract infection, site not specified; N17.9 Acute kidney failure, unspecified; I42.9 Cardiomyopathy, unspecified; D62 Acute posthemorrhagic anemia; S36.62XA Contusion of rectum, initial encounter; E87.1 Hypo-osmolality and hyponatremia; N18.3 Chronic kidney disease, stage 3 (moderate); I48.91 Unspecified atrial fibrillation; E11.22 Type 2 diabetes mellitus with diabetic chronic kidney disease; E78.5 Hyperlipidemia, unspecified; I12.9 Hypertensive chronic kidney disease with stage 1 through stage 4 chronic kidney disease, or unspecified chronic kidney disease; I25.10 Atherosclerotic heart disease of native coronary artery without angina pectoris; Z95.5 Presence of coronary angioplasty implant and graft; I25.2 Old myocardial infarction; E66.9 Obesity, unspecified; Z68.36 Body mass index [BMI] 36.0-36.9, adult; Z79.899 Other long term (current) drug therapy; J45.909 Unspecified asthma, uncomplicated; B00.1 Herpesviral vesicular dermatitis; E78.2 Mixed hyperlipidemia; E83.51 Hypocalcemia; Z88.0 Allergy status to penicillin
CPT/HCPCS: 36415; 36416; 36430; 36569; 71045; 74176; 76705; 76770; 80048; 80053; 80069; 81001; 82274; 82553; 83605; 83735; 84100; 84484; 85014; 85018; 85025; 86850; 86900; 86901; 87070; 87086; 87205; 87324; 87449; 87804; 87899; 93005; 94640; 96365; 96366; 96367; 96368; 96375; C1751; G8978-GP-CK; G8979-GP-CI; G8987-GO-CK; G8988-GO-CI; J0153; J0456; J0692; J0696; J1630; J1644; J1650; J1940; J2920; J3370; J3490; J7050; J7506; J7620; P9016; S0028

== ENCOUNTER 2020-10-11 17:47 | Inpatient (IN) | payer MEDICARE ==
[2020-10-11] MEDS ORDERED: Aspirin Chewable 81 MG TAB ONE (18:14)
[2020-10-11] MEDS ORDERED: Diltiazem 125 MG/25 ML ONE (18:14)
[2020-10-11 18:33] LABS: #Basophils 0.1 thou/uL (0.0-0.2); #Eosinphils 0.7 thou/uL (0.0-0.7); #Lymphocytes 2.3 thou/uL (1.20-3.40); #Monocytes 0.7 thou/uL (0.11-0.59); #Neutrophils 3.1 thou/uL (1.40-6.50); %Basophils 0.7 % (0.0-1.0); %Eosinophils 9.8 % (0.0-10.0); %Lymphocytes 33.5 % (21.0-51.0); %Monocytes 10.5 % (0.0-10.0); %Neutrophils 45.6 % (42.0-75.0); Hemoglobin 13.1 g/dL (12.0-16.0); Mean Corpuscular HGB CONC 32.1 g/dL (32.0-36.0); Mean Corpuscular Hemoglobin 32.6 pg (27.0-31.0); Mean Platelet Volume 8.8 fL (7.4-10.4); Platelet Count 137 thou/uL (130-400); RBC Distribution Width 13.5 % (11.5-14.5); Red Blood Cell (RBC) Count 4.03 mill/uL (4.20-5.40); White Blood Cell (WBC) Count 6.7 thou/uL (4.8-10.8)
[2020-10-11 19:04] LABS: ALT (SGPT) 19 U/L (8-55); AST (SGOT) 42 U/L (5-34); Albumin 2.6 g/dL (3.4-4.8); Alkaline Phosphatase 119 U/L (40-110); Anion Gap 16 mmol/L (10-20); BUN (Urea Nitrogen) 36 mg/dL (9.8-20.1); Bilirubin, Total 0.7 mg/dL (0.2-1.2); CK (CPK) 70 U/L (29-168); Calc. Creatinine Clearance 0 mL/min (70-130); Carbon Dioxide 21 mmol/L (23-31); Chloride 111 mmol/L (98-107); Globulin 3.2 g/dL (2.4-3.5); Glucose 176 mg/dL (83-110); Lipase 28 U/L (8-78); Potassium 4.5 mmol/L (3.5-5.1); Protein, Total 5.8 g/dL (5.8-8.1); Sodium 143 mmol/L (136-145)
[2020-10-11] MEDS ORDERED: Furosemide 40 MG/4 ML VIAL ONE (19:19)
[2020-10-11] MEDS ORDERED: Ondansetron ODT 4 MG TAB SL PRN (21:45)
[2020-10-11] MEDS ORDERED: Ondansetron PF 4 MG/2 ML Vial IVP PRN (21:45)
[2020-10-12] MEDS ORDERED: cloNIDine 0.1 MG TAB PO PRN (00:14)
[2020-10-12] MEDS ORDERED: Promethazine HCl 12.5 MG in Sodium Chloride 0.9% 50 ML IVPB PRN (00:14)
[2020-10-12] MEDS ORDERED: Ondansetron PF 4 MG/2 ML Vial IVP PRN (00:14)
[2020-10-12] MEDS ORDERED: Guaifenesin DM 100-10/5 ML UDCUP PO PRN (00:14)
[2020-10-12] MEDS ORDERED: Acetaminophen 325 MG TAB PO PRN (00:14)
[2020-10-12] MEDS ORDERED: Labetalol HCl 100 MG/20 ML VIAL SLOW IVP PRN (00:14)
[2020-10-12] MEDS ORDERED: HYDROcodone/Acetaminophen 5/325 mg Tablet PO PRN (00:14)
[2020-10-12] MEDS ORDERED: hydrALAZINE 20 MG/ML VIAL SLOW IVP PRN (00:14)
[2020-10-12] MEDS ORDERED: Electrolyte Replacement Protocol 1 EACH FS SCH (00:15)
[2020-10-12] MEDS ORDERED: Electrolyte Replacement Protocol FS PRN (00:45)
[2020-10-12] MEDS: Diltiazem 125 MG in Sodium Chloride 0.9% 100 ML IVPB SCH ×2 (01:08→22:19)
[2020-10-12 04:12] LABS: Anion Gap 13 mmol/L (10-20); BUN (Urea Nitrogen) 39 mg/dL (9.8-20.1); Calc. Creatinine Clearance 34 mL/min (70-130); Calcium 7.7 mg/dL (7.8-10.44); Carbon Dioxide 18 mmol/L (23-31); Chloride 113 mmol/L (98-107); Glucose 159 mg/dL (83-110); Magnesium 1.5 mg/dL (1.6-2.6); Potassium 4.1 mmol/L (3.5-5.1); Sodium 140 mmol/L (136-145)
[2020-10-12 04:16] LABS: #Basophils 0.1 thou/uL (0.0-0.2); #Eosinphils 0.6 thou/uL (0.0-0.7); #Lymphocytes 2.4 thou/uL (1.20-3.40); #Monocytes 0.8 thou/uL (0.11-0.59); #Neutrophils 2.4 thou/uL (1.40-6.50); %Basophils 1.7 % (0.0-1.0); %Eosinophils 9.8 % (0.0-10.0); %Lymphocytes 37.8 % (21.0-51.0); %Monocytes 12.7 % (0.0-10.0); %Neutrophils 38.1 % (42.0-75.0); Hemoglobin 11.7 g/dL (12.0-16.0); Mean Corpuscular HGB CONC 32.1 g/dL (32.0-36.0); Mean Corpuscular Hemoglobin 32.6 pg (27.0-31.0); Mean Platelet Volume 8.8 fL (7.4-10.4); Platelet Count 110 thou/uL (130-400); Platelet Morphology Comment Appears Decreased; RBC Distribution Width 13.3 % (11.5-14.5); Red Blood Cell (RBC) Count 3.58 mill/uL (4.20-5.40); White Blood Cell (WBC) Count 6.3 thou/uL (4.8-10.8)
[2020-10-12] MEDS ORDERED: Furosemide 40 MG/4 ML VIAL IVP SCH (06:00)
[2020-10-12] MEDS: Furosemide 40 MG/4 ML VIAL SLOW IVP SCH ×2 (06:05→14:17)
[2020-10-12] MEDS ORDERED: Magnesium 2 GM/50 ML 2 GM in Premix Bag 1 BAG IVPB SCH (06:30)
[2020-10-12 06:37] LABS: SARS-CoV-2 PCR by NAA Not Detected (NotDetected)
[2020-10-12] MEDS ORDERED: Dextrose 5% in Water 1,000 ML IV PRN (07:07)
[2020-10-12] MEDS ORDERED: HumaLOG 300 UNITS/3 ML VIAL SC PRN (07:07)
[2020-10-12] MEDS ORDERED: Dextrose 50% Abboject 50 ML SYRINGE SLOW IVP PRN (07:07)
[2020-10-12] MEDS: Polyethylene Glycol 3350 17 GM Packet PO SCH (09:11)
[2020-10-12] MEDS: Famotidine 20 MG TAB PO SCH (09:12)
[2020-10-12] MEDS: Aspirin 81 mg Enteric Coated Tablet PO SCH (09:12)
[2020-10-12] MEDS: Metoprolol Tartrate 50 MG TAB PO SCH ×2 (09:13→19:59)
[2020-10-12] MEDS: Apixaban 5 MG TAB PO SCH ×2 (14:17→22:18)
[2020-10-12] MEDS: Dronedarone HCl 400 MG TAB PO SCH (18:03)
[2020-10-12] MEDS: Atorvastatin Calcium 10 MG TAB PO SCH (19:58)
[2020-10-12] MEDS ORDERED: FLU VACC QS2020-21(65YR UP)/PF 240 MCG/0.7 ML SYRINGE IM ONE (21:00)
[2020-10-12] MEDS ORDERED: Lorazepam 1 MG TAB PO SCH (23:30)
[2020-10-13 04:01] LABS: #Basophils 0.1 thou/uL (0.0-0.2); #Eosinphils 0.7 thou/uL (0.0-0.7); #Lymphocytes 2.6 thou/uL (1.20-3.40); #Neutrophils 2.7 thou/uL (1.40-6.50); %Basophils 1.2 % (0.0-1.0); %Eosinophils 10.5 % (0.0-10.0); %Lymphocytes 36.8 % (21.0-51.0); %Monocytes 13.6 % (0.0-10.0); %Neutrophils 37.9 % (42.0-75.0); Hemoglobin 12.2 g/dL (12.0-16.0); Mean Corpuscular HGB CONC 34.1 g/dL (32.0-36.0); Mean Corpuscular Hemoglobin 34.9 pg (27.0-31.0); Mean Platelet Volume 8.8 fL (7.4-10.4); Platelet Count 105 thou/uL (130-400); RBC Distribution Width 13.4 % (11.5-14.5); Red Blood Cell (RBC) Count 3.49 mill/uL (4.20-5.40)
[2020-10-13 04:15] LABS: Anion Gap 15 mmol/L (10-20); BUN (Urea Nitrogen) 39 mg/dL (9.8-20.1); Calc. Creatinine Clearance 29 mL/min (70-130); Calcium 7.9 mg/dL (7.8-10.44); Carbon Dioxide 19 mmol/L (23-31); Chloride 110 mmol/L (98-107); Glucose 140 mg/dL (83-110); Magnesium 1.6 mg/dL (1.6-2.6); Potassium 4.6 mmol/L (3.5-5.1); Sodium 139 mmol/L (136-145)
[2020-10-13] MEDS: Furosemide 40 MG/4 ML VIAL SLOW IVP SCH ×2 (05:09→17:07)
[2020-10-13] MEDS ORDERED: Magnesium 2 GM/50 ML 2 GM in Premix Bag 1 BAG IVPB SCH (08:45)
[2020-10-13] MEDS: Dronedarone HCl 400 MG TAB PO SCH (10:19)
[2020-10-13] MEDS: Apixaban 5 MG TAB PO SCH ×2 (10:19→20:05)
[2020-10-13] MEDS: Famotidine 20 MG TAB PO SCH (10:20)
[2020-10-13] MEDS: Aspirin 81 mg Enteric Coated Tablet PO SCH (10:20)
[2020-10-13] MEDS: Polyethylene Glycol 3350 17 GM Packet PO SCH (10:25)
[2020-10-13] MEDS: Metoprolol Tartrate 50 MG TAB PO SCH ×2 (10:26→20:05)
[2020-10-13] MEDS ORDERED: PROPOFOL 200 MG/20 ML VIAL ONE (12:49)
[2020-10-13] MEDS ORDERED: Lidocaine 1% PF 5 ML VIAL ONE (12:49)
[2020-10-13] MEDS: Atorvastatin Calcium 10 MG TAB PO SCH (20:05)
[2020-10-14 04:04] LABS: Anion Gap 14 mmol/L (10-20); BUN (Urea Nitrogen) 42 mg/dL (9.8-20.1); Calc. Creatinine Clearance 27 mL/min (70-130); Calcium 7.6 mg/dL (7.8-10.44); Carbon Dioxide 16 mmol/L (23-31); Chloride 111 mmol/L (98-107); Glucose 138 mg/dL (83-110); Magnesium 1.9 mg/dL (1.6-2.6); Potassium 4.7 mmol/L (3.5-5.1); Sodium 136 mmol/L (136-145)
[2020-10-14 04:52] LABS: Band 2 % (5-11); Eosinophils 11 % (0-10); Hemoglobin 11.1 g/dL (12.0-16.0); Lymphocytes 32 % (21-51); MDiff Complete? YES; Mean Corpuscular HGB CONC 31.9 g/dL (32.0-36.0); Mean Corpuscular Hemoglobin 32.5 pg (27.0-31.0); Mean Platelet Volume 8.6 fL (7.4-10.4); Monocytes 12 % (0-10); Neutrophil 43 % (42-75); Platelet Count 93 thou/uL (130-400); Platelet Morphology Comment Appears Decreased; RBC Distribution Width 13.3 % (11.5-14.5); Red Blood Cell (RBC) Count 3.42 mill/uL (4.20-5.40); White Blood Cell (WBC) Count 6.3 thou/uL (4.8-10.8)
[2020-10-14] MEDS: Furosemide 40 MG/4 ML VIAL SLOW IVP SCH (05:45)
[2020-10-14] MEDS: Famotidine 20 MG TAB PO SCH (09:13)
[2020-10-14] MEDS: Aspirin 81 mg Enteric Coated Tablet PO SCH (09:13)
[2020-10-14] MEDS: Polyethylene Glycol 3350 17 GM Packet PO SCH (09:14)
[2020-10-14] MEDS ORDERED: Sodium Chloride 0.9% 250 ML IVPB SCH (12:00)
[2020-10-14] MEDS ORDERED: Dronedarone HCl 400 MG TAB PO SCH (12:15)
[2020-10-14] MEDS: Dronedarone HCl 400 MG TAB PO SCH (13:07)
[2020-10-14 16:35] LABS: Anion Gap 14 mmol/L (10-20); BUN (Urea Nitrogen) 41 mg/dL (9.8-20.1); Calc. Creatinine Clearance 28 mL/min (70-130); Carbon Dioxide 21 mmol/L (23-31); Chloride 108 mmol/L (98-107); Glucose 150 mg/dL (83-110); Potassium 4.4 mmol/L (3.5-5.1); Sodium 139 mmol/L (136-145)
[2020-10-14] MEDS: Metoprolol Tartrate 50 MG TAB PO SCH (20:10)
[2020-10-14] MEDS: Apixaban 5 MG TAB PO SCH (20:10)
[2020-10-14] MEDS: Atorvastatin Calcium 10 MG TAB PO SCH (20:10)
[2020-10-15 08:23] LABS: Anion Gap 15 mmol/L (10-20); BUN (Urea Nitrogen) 40 mg/dL (9.8-20.1); Calc. Creatinine Clearance 27 mL/min (70-130); Carbon Dioxide 18 mmol/L (23-31); Chloride 109 mmol/L (98-107); Glucose 122 mg/dL (83-110); Potassium 4.3 mmol/L (3.5-5.1); Sodium 138 mmol/L (136-145)
[2020-10-15] MEDS: Dronedarone HCl 400 MG TAB PO SCH ×2 (08:46→21:30)
[2020-10-15] MEDS: Polyethylene Glycol 3350 17 GM Packet PO SCH (08:46)
[2020-10-15] MEDS: Metoprolol Tartrate 50 MG TAB PO SCH ×2 (08:46→21:31)
[2020-10-15] MEDS: Aspirin 81 mg Enteric Coated Tablet PO SCH (08:46)
[2020-10-15] MEDS: Famotidine 20 MG TAB PO SCH (08:46)
[2020-10-15] MEDS: Apixaban 5 MG TAB PO SCH ×2 (08:46→21:29)
[2020-10-15] MEDS: Tetrahydrozoline 0.05% OPTH 15 ML BOT L EYE SCH ×2 (17:50→21:36)
[2020-10-15] MEDS: Atorvastatin Calcium 10 MG TAB PO SCH (21:29)
[2020-10-15] MEDS: Benzonatate 100 MG CAP PO SCH (21:30)
[2020-10-15] MEDS: guaiFENesin/DM ER PO SCH (21:30)
[2020-10-16 04:15] LABS: Albumin 2.2 g/dL (3.4-4.8); Anion Gap 13 mmol/L (10-20); BUN (Urea Nitrogen) 39 mg/dL (9.8-20.1); BUN/Creatinine Ratio 17.97; Calc. Creatinine Clearance 30 mL/min (70-130); Carbon Dioxide 18 mmol/L (23-31); Chloride 110 mmol/L (98-107); Glucose 152 mg/dL (83-110); Phosphorus 3.7 mg/dL (2.3-4.7); Potassium 4.3 mmol/L (3.5-5.1); Sodium 137 mmol/L (136-145)
[2020-10-16 04:58] LABS: Band 5 % (5-11); Eosinophils 4 % (0-10); Hemoglobin 10.7 g/dL (12.0-16.0); Lymphocytes 26 % (21-51); MDiff Complete? YES; Mean Corpuscular HGB CONC 32.5 g/dL (32.0-36.0); Mean Corpuscular Hemoglobin 32.5 pg (27.0-31.0); Mean Platelet Volume 8.9 fL (7.4-10.4); Monocytes 11 % (0-10); Neutrophil 54 % (42-75); Platelet Count 86 thou/uL (130-400); Platelet Morphology Comment Appears Decreased; RBC Distribution Width 13.3 % (11.5-14.5); Red Blood Cell (RBC) Count 3.29 mill/uL (4.20-5.40); White Blood Cell (WBC) Count 5.5 thou/uL (4.8-10.8)
[2020-10-16 06:07] VITALS: BMI 32.9
[2020-10-16] MEDS: Dronedarone HCl 400 MG TAB PO SCH (08:30)
[2020-10-16] MEDS: Metoprolol Tartrate 50 MG TAB PO SCH (08:30)
[2020-10-16] MEDS: guaiFENesin/DM ER PO SCH (08:30)
[2020-10-16] MEDS: Polyethylene Glycol 3350 17 GM Packet PO SCH (08:30)
[2020-10-16] MEDS: Benzonatate 100 MG CAP PO SCH (08:30)
[2020-10-16] MEDS: Aspirin 81 mg Enteric Coated Tablet PO SCH (08:30)
[2020-10-16] MEDS: Apixaban 5 MG TAB PO SCH (08:30)
[2020-10-16] MEDS: Famotidine 20 MG TAB PO SCH (08:31)
[2020-10-16] MEDS: Tetrahydrozoline 0.05% OPTH 15 ML BOT L EYE SCH (08:31)
[2020-10-16] MEDS ORDERED: Furosemide 20 MG TAB PO SCH (09:00)
[2020-10-16 11:25] VITALS: BP 142/60; TEMP 97.6
== END 2020-10-16 11:45 | disposition home or self-care (01) | DRG 291 ==
LOC: ERS 17:47 → 2NO 19:34 → UNDOADMIN 19:36 → 2NO 19:36
PROVIDERS: ADMIT Internal Medicine; ATTEND Internal Medicine
PROC: 5A2204Z Restoration of Cardiac Rhythm, Single (ICD-10-PCS; principal; 2020-10-13)
DX: I13.0 Hypertensive heart and chronic kidney disease with heart failure and stage 1 through stage 4 chronic kidney disease, or unspecified chronic kidney disease (principal); I50.33 Acute on chronic diastolic (congestive) heart failure; I48.4 Atypical atrial flutter; N17.9 Acute kidney failure, unspecified; Z20.822 Contact with and (suspected) exposure to COVID-19; I48.11 Longstanding persistent atrial fibrillation; D64.9 Anemia, unspecified; I25.10 Atherosclerotic heart disease of native coronary artery without angina pectoris; N18.30 Chronic kidney disease, stage 3 unspecified; E11.22 Type 2 diabetes mellitus with diabetic chronic kidney disease; E78.5 Hyperlipidemia, unspecified; K21.9 Gastro-esophageal reflux disease without esophagitis; I49.1 Atrial premature depolarization; R00.1 Bradycardia, unspecified; E66.9 Obesity, unspecified; Z68.32 Body mass index [BMI] 32.0-32.9, adult; Z88.0 Allergy status to penicillin; Z88.8 Allergy status to other drugs, medicaments and biological substances; Z28.21 Immunization not carried out because of patient refusal; Z98.42 Cataract extraction status, left eye; Z98.41 Cataract extraction status, right eye; Z95.5 Presence of coronary angioplasty implant and graft; I25.2 Old myocardial infarction; Z79.899 Other long term (current) drug therapy; Z79.82 Long term (current) use of aspirin; Z79.01 Long term (current) use of anticoagulants; Z90.710 Acquired absence of both cervix and uterus
CPT/HCPCS: 36415; 36416; 71045; 80048; 80053; 80069; 82550; 83690; 83735; 83880; 84484; 85025; 87635; 92960; 93005; 93010; 93306; 94640; 96374; 96375; J1940; J2704; J3475; J3490; J7620; U0003; U0005

== ENCOUNTER 2020-11-29 15:36 | Inpatient (IN) | payer MEDICARE ==
[2020-11-29 16:23] LABS: #Basophils 0.1 thou/uL (0.0-0.2); #Eosinphils 0.6 thou/uL (0.0-0.7); #Lymphocytes 1.9 thou/uL (1.20-3.40); #Monocytes 0.7 thou/uL (0.11-0.59); #Neutrophils 3.9 thou/uL (1.40-6.50); %Basophils 0.9 % (0.0-1.0); %Eosinophils 8.4 % (0.0-10.0); %Lymphocytes 26.7 % (21.0-51.0); %Monocytes 9.3 % (0.0-10.0); %Neutrophils 54.8 % (42.0-75.0); Hemoglobin 13.5 g/dL (12.0-16.0); Mean Corpuscular HGB CONC 32.2 g/dL (32.0-36.0); Mean Corpuscular Hemoglobin 32.5 pg (27.0-31.0); Mean Platelet Volume 8.5 fL (7.4-10.4); Platelet Count 184 thou/uL (130-400); RBC Distribution Width 13.3 % (11.5-14.5); Red Blood Cell (RBC) Count 4.14 mill/uL (4.20-5.40); White Blood Cell (WBC) Count 7.2 thou/uL (4.8-10.8)
[2020-11-29] MEDS ORDERED: Diltiazem 125 MG/25 ML ONE (16:31)
[2020-11-29 16:43] LABS: ALT (SGPT) 16 U/L (8-55); AST (SGOT) 41 U/L (5-34); Albumin 2.8 g/dL (3.4-4.8); Alkaline Phosphatase 142 U/L (40-110); Anion Gap 12 mmol/L (10-20); BUN (Urea Nitrogen) 26 mg/dL (9.8-20.1); Bilirubin, Total 0.9 mg/dL (0.2-1.2); Calc. Creatinine Clearance 0 mL/min (70-130); Calcium 8.7 mg/dL (7.8-10.44); Carbon Dioxide 27 mmol/L (23-31); Chloride 107 mmol/L (98-107); Globulin 3.7 g/dL (2.4-3.5); Glucose 193 mg/dL (83-110); Potassium 4.5 mmol/L (3.5-5.1); Protein, Total 6.5 g/dL (5.8-8.1); Sodium 141 mmol/L (136-145)
[2020-11-29] MEDS ORDERED: Furosemide 40 MG/4 ML VIAL ONE (17:47)
[2020-11-29 19:36] LABS: Troponin I 0.206 ng/mL (< 0.028)
[2020-11-29] MEDS ORDERED: HumaLOG 300 UNITS/3 ML VIAL SC PRN ×2 (20:08)
[2020-11-29] MEDS ORDERED: Dextrose 50% Abboject 50 ML SYRINGE SLOW IVP PRN (20:08)
[2020-11-29] MEDS ORDERED: Dextrose 5% in Water 1,000 ML IV PRN (20:08)
[2020-11-29] MEDS ORDERED: Calcium Carbonate 500 MG ChewTAB PO PRN (20:10)
[2020-11-29] MEDS ORDERED: Ondansetron PF 4 MG/2 ML Vial IVP PRN (20:10)
[2020-11-29] MEDS ORDERED: Ondansetron ODT 4 MG TAB PO PRN (20:10)
[2020-11-29] MEDS ORDERED: Acetaminophen 325 MG TAB PO PRN (20:10)
[2020-11-29] MEDS ORDERED: Senokot S 8.6-50 MG TAB PO PRN (20:10)
[2020-11-29 20:46] VITALS: BMI 30.2
[2020-11-29] MEDS: Famotidine 20 MG TAB PO SCH (21:27)
[2020-11-29] MEDS: Famotidine/PF 20 mg/2ml Vial SLOW IVP SCH (21:27)
[2020-11-29] MEDS: Apixaban 5 MG TAB PO SCH (21:27)
[2020-11-29] MEDS: Metoprolol Tartrate 25 MG TAB PO SCH (21:27)
[2020-11-29 22:36] LABS: Bacteria/HPF 4+ HPF (None Seen); Bilirubin Negative (Negative); Blood, Urine 1+ (Negative); Clarity Turbid (Clear); Glucose, Urine (Dipstick) Normal (Negative); Ketone, Urine Negative (Negative); Leukocyte 75 Leu/uL (Negative); Nitrite Negative (Negative); Protein, Urine (Dipstick) 70 mg/dL (Neg-Trace); Specific Gravity, Urine 1.007 (1.002-1.036); Squamous Epithelial 0-3 HPF (0-3); Urobilinogen Normal mg/dL (Less than 2); pH, Urine 6.5 (5.0-9.0)
[2020-11-29 22:56] LABS: Troponin I 0.657 ng/mL (< 0.028)
[2020-11-30] MEDS ORDERED: Melatonin 3 MG TAB PO SCH (02:45)
[2020-11-30 04:43] LABS: Anion Gap 10 mmol/L (10-20); BUN (Urea Nitrogen) 28 mg/dL (9.8-20.1); Calc. Creatinine Clearance 42 mL/min (70-130); Calcium 7.9 mg/dL (7.8-10.44); Carbon Dioxide 26 mmol/L (23-31); Cardiac Risk 6.5 (Less than 4.5); Chloride 108 mmol/L (98-107); Cholesterol 144 mg/dl (< 200 Desired); Glucose 175 mg/dL (83-110); HDL Cholesterol 22 mg/dL (>60 Neg Risk); LDL Cholesterol, Calculated 89 mg/dL; Magnesium 1.2 mg/dL (1.6-2.6); Potassium 4.2 mmol/L (3.5-5.1); Sodium 140 mmol/L (136-145); Triglycerides 166 mg/dL (Less than 150)
[2020-11-30 04:44] LABS: #Basophils 0.1 thou/uL (0.0-0.2); #Eosinphils 0.4 thou/uL (0.0-0.7); #Lymphocytes 2.3 thou/uL (1.20-3.40); #Monocytes 0.9 thou/uL (0.11-0.59); #Neutrophils 3.2 thou/uL (1.40-6.50); %Basophils 1.3 % (0.0-1.0); %Eosinophils 6.4 % (0.0-10.0); %Lymphocytes 33.5 % (21.0-51.0); %Monocytes 13.3 % (0.0-10.0); %Neutrophils 45.6 % (42.0-75.0); Hemoglobin 10.5 g/dL (12.0-16.0); Mean Platelet Volume 8.6 fL (7.4-10.4); Platelet Count 144 thou/uL (130-400); RBC Distribution Width 13.2 % (11.5-14.5); Red Blood Cell (RBC) Count 3.26 mill/uL (4.20-5.40)
[2020-11-30 04:55] LABS: SARS-CoV-2 PCR by NAA Not Detected (NotDetected)
[2020-11-30] MEDS: Apixaban 5 MG TAB PO SCH ×2 (08:48→21:44)
[2020-11-30] MEDS: Metoprolol Tartrate 25 MG TAB PO SCH ×2 (08:48→21:44)
[2020-11-30] MEDS: Aspirin Chewable 81 MG TAB PO SCH (08:49)
[2020-11-30] MEDS ORDERED: Magnesium Sulfate 4 GM in Sodium Chloride 0.9% 250 ML 250 ML IVPB SCH (09:45)
[2020-11-30] MEDS ORDERED: Diltiazem 125 MG in Sodium Chloride 0.9% 100 ML IVPB SCH (13:30)
[2020-11-30] MEDS: Dronedarone HCl 400 MG TAB PO SCH (17:29)
[2020-11-30] MEDS: Famotidine 20 MG TAB PO SCH (21:45)
[2020-11-30] MEDS: Famotidine/PF 20 mg/2ml Vial SLOW IVP SCH (21:45)
[2020-11-30] MEDS ORDERED: Albuterol Sulfate 2.5 mg/3 ml Neb NEB PRN (22:35)
[2020-11-30] MEDS ORDERED: Electrolyte Replacement Protocol 1 EACH FS SCH (22:45)
[2020-11-30] MEDS ORDERED: Electrolyte Replacement Protocol FS PRN (22:45)
[2020-12-01 04:28] LABS: #Basophils 0.1 thou/uL (0.0-0.2); #Eosinphils 0.8 thou/uL (0.0-0.7); #Lymphocytes 2.6 thou/uL (1.20-3.40); #Monocytes 0.8 thou/uL (0.11-0.59); #Neutrophils 2.8 thou/uL (1.40-6.50); %Basophils 0.7 % (0.0-1.0); %Eosinophils 11.3 % (0.0-10.0); %Lymphocytes 36.9 % (21.0-51.0); %Monocytes 11.1 % (0.0-10.0); %Neutrophils 39.9 % (42.0-75.0); Hemoglobin 11.1 g/dL (12.0-16.0); Mean Corpuscular HGB CONC 32.9 g/dL (32.0-36.0); Mean Platelet Volume 8.5 fL (7.4-10.4); Platelet Count 156 thou/uL (130-400); RBC Distribution Width 13.2 % (11.5-14.5); Red Blood Cell (RBC) Count 3.36 mill/uL (4.20-5.40); White Blood Cell (WBC) Count 7.1 thou/uL (4.8-10.8)
[2020-12-01 04:48] LABS: Anion Gap 12 mmol/L (10-20); BUN (Urea Nitrogen) 29 mg/dL (9.8-20.1); Calc. Creatinine Clearance 33 mL/min (70-130); Calcium 8.1 mg/dL (7.8-10.44); Carbon Dioxide 23 mmol/L (23-31); Chloride 107 mmol/L (98-107); Glucose 127 mg/dL (83-110); Magnesium 2.1 mg/dL (1.6-2.6); Potassium 4.7 mmol/L (3.5-5.1); Sodium 137 mmol/L (136-145)
[2020-12-01] MEDS ORDERED: Potassium Chloride 20 MEQ TAB PO SCH (08:00)
[2020-12-01] MEDS ORDERED: Furosemide 40 MG TAB PO SCH (09:00)
[2020-12-01] MEDS: Dronedarone HCl 400 MG TAB PO SCH (10:02)
[2020-12-01] MEDS: Metoprolol Tartrate 25 MG TAB PO SCH (10:02)
[2020-12-01] MEDS: Apixaban 5 MG TAB PO SCH (10:05)
[2020-12-01] MEDS: Aspirin Chewable 81 MG TAB PO SCH (10:05)
[2020-12-01 15:15] VITALS: BP 140/66; TEMP 97.8
== END 2020-12-01 17:27 | disposition home or self-care (01) | DRG 280 ==
LOC: ERS 15:36 → 2NO 18:00
PROVIDERS: ADMIT Internal Medicine; ATTEND Internal Medicine
DX: I48.91 Unspecified atrial fibrillation (principal); I50.33 Acute on chronic diastolic (congestive) heart failure; I21.A1 Myocardial infarction type 2; N39.0 Urinary tract infection, site not specified; I11.0 Hypertensive heart disease with heart failure; E11.9 Type 2 diabetes mellitus without complications; E78.5 Hyperlipidemia, unspecified; I25.10 Atherosclerotic heart disease of native coronary artery without angina pectoris; E66.9 Obesity, unspecified; K21.9 Gastro-esophageal reflux disease without esophagitis; B96.20 Unspecified Escherichia coli [E. coli] as the cause of diseases classified elsewhere; Z20.822 Contact with and (suspected) exposure to COVID-19; Z79.01 Long term (current) use of anticoagulants; Z88.0 Allergy status to penicillin; Z88.8 Allergy status to other drugs, medicaments and biological substances; I25.2 Old myocardial infarction; Z95.5 Presence of coronary angioplasty implant and graft; Z90.710 Acquired absence of both cervix and uterus; Z79.82 Long term (current) use of aspirin; Z68.30 Body mass index [BMI] 30.0-30.9, adult
CPT/HCPCS: 36415; 36416; 71045; 71046; 80048; 80053; 80061; 81001; 82553; 83735; 83880; 84100; 84443; 84484; 85025; 87077; 87086; 87186; 87635; 93005; 93010; 93306; 93798; 93880; 96365; 96366; 96374; 96375; 97139; J1940; J3475; J3490; J7050; S0028; U0003; U0005

== ENCOUNTER 2021-05-12 10:32 | Day surgery (SDC) | payer MEDICARE ==
[2021-05-12] MEDS ORDERED: PROPOFOL 20 ML ONE (11:14)
[2021-05-12] MEDS ORDERED: Fluconazole 100 MG TAB PO SCH (12:00)
[2021-05-12] MEDS ORDERED: Flecainide 50 MG TAB PO SCH (12:15)
== END 2021-05-12 13:00 | disposition home or self-care (01) ==
LOC: SDC 10:32
PROVIDERS: ATTEND Internal Medicine Cardiovascular Disease
PROC: 5A2204Z Restoration of Cardiac Rhythm, Single (ICD-10-PCS; principal; 2021-05-12)
DX: I48.4 Atypical atrial flutter (principal); I48.0 Paroxysmal atrial fibrillation; I25.10 Atherosclerotic heart disease of native coronary artery without angina pectoris; I25.2 Old myocardial infarction; E11.51 Type 2 diabetes mellitus with diabetic peripheral angiopathy without gangrene; I11.0 Hypertensive heart disease with heart failure; I50.22 Chronic systolic (congestive) heart failure; E78.5 Hyperlipidemia, unspecified; Z79.01 Long term (current) use of anticoagulants; Z79.4 Long term (current) use of insulin; Z79.82 Long term (current) use of aspirin; Z79.899 Other long term (current) drug therapy; Z88.0 Allergy status to penicillin; Z88.8 Allergy status to other drugs, medicaments and biological substances
CPT/HCPCS: 92960; 93005; 93010; J2704